=== PATIENT | female | born 1980 | race Caucasian/White ===

== ENCOUNTER 2016-07-27 18:24 | Emergency (ER) | payer OTHER ==
[2016-07-27 18:49] VITALS: BP 128/77
--- NOTE | 2016-07-27 19:15 | UC ---
Back Pain HPI - HPI Summary HPI Summary: months of upper back pain--sometimes arms feel numb and tingling-- - History of Current Complaint Chief Complaint: UCBackPain Stated Complaint: BACK PAIN Hx Obtained From: Patient Hx Last Menstrual Period: 5 months ago (stopped after a D&C)(pt may have had a ablation at that time) ?: No Onset/Duration: Lasting Weeks, Still Present - on/off Timing: Intermittent Severity Initially: Moderate Severity Currently: Moderate Back Pain: Is Discrete @ - mid upper thorasic spine Character: Aching, Throbbing, Stiffness Aggravating: Movement, Lifting, Bending, Walking Alleviating: Nothing Associated Signs And Symptoms: Positive: Tingling Related History: Similar Episode Dx As - seen pcp rx flexeril - Allergies/Home Medications Allergies/Adverse Reactions: Allergies Allergy/AdvReac Type Severity Reaction Status Date / Time No Known Allergies Allergy Verified 04/29/16 15:38 Home Medications: Home Medications Atorvastatin* [Lipitor*] 10 mg PO 1700 07/27/16 [History Confirmed 07/27/16] PMH/Surg Hx/FS Hx/Imm Hx Previously Healthy: No Endocrine History Of: Reports: Dyslipidemia Denies: Diabetes, Thyroid Disease Cardiovascular History Of: Reports: Cardiac Disorders - high cholesterol Denies: Hypertension Respiratory History Of: Denies: COPD, Asthma GI/ History Of: Denies: Ulcer - Surgical History Surgical History: Yes Surgery Procedure, Year, and Place: . gall bladder removal. right ovary removed - Family History Known Family History: Positive: Cardiac Disease, Hypertension, Diabetes - Social History Occupation: Disabled Lives: With Family Alcohol Use: Rare Substance Use Type: None Smoking Status (MU): Never Smoked Tobacco Household Exposure Type: Cigarettes Review of Systems Constitutional: Negative Skin: Negative Eyes: Negative ENT: Negative Respiratory: Negative Cardiovascular: Negative Gastrointestinal: Negative Genitourinary: Negative Motor: Negative Neurovascular: Negative Musculoskeletal: Arthralgia - mid thr Neurological: Negative Psychological: Negative All Other Systems Reviewed And Are Negative: Yes Physical Exam Triage Information Reviewed: Yes Appearance: No Pain Distress, Ill-Appearing - chronic apperars older than stated age, Obese Vital Signs: Initial Vital Signs Temp 97.5 F 07/27/16 18:45 Pulse 87 07/27/16 18:45 Resp 18 07/27/16 18:45 BP 128/77 07/27/16 18:45 Pulse Ox 99 07/27/16 18:45 Vital Signs Reviewed: Yes Eye Exam: Normal Eyes: Positive: Conjunctiva Clear ENT Exam: Normal ENT: Positive: Normal ENT inspection, Hearing grossly normal, TMs normal. Negative: Nasal congestion, Nasal drainage, Tonsillar swelling, Tonsillar exudate, Trismus, Muffled/hoarse voice Neck exam: Normal Neck: Positive: Supple, Nontender, No Lymphadenopathy Respiratory Exam: Normal Respiratory: Positive: Chest non-tender, Lungs clear, Normal breath sounds, No respiratory distress, No accessory muscle use Cardiovascular Exam: Normal Cardiovascular: Positive: RRR, No Murmur, Pulses Normal, Brisk Capillary Refill Musculoskeletal Exam: Normal Musculoskeletal: Positive: Strength Intact, ROM Intact, No Edema, Other: - pain t-spine has kyphosis Neurological Exam: Normal Neurological: Positive: Alert, Muscle Tone Normal Psychological Exam: Normal Psychological: Positive: Normal Response To Family Skin Exam: Normal Diagnostics - Radiology No standard instances Xray Interpretation: Positive (See Comments) - arthertic changes, disc height narrow Radiology Interpretation Completed By: ED Physician Back Pain Course/Dx - Course Course Of Treatment: exercises, muscle relaxers, antinflammatories, follw with PCP - Differential Dx/Diagnosis Differential Diagnosis/HQI/PQRI: Arthritis, Herniated Disc, Strain, Sprain Provider Diagnoses: Chronic throasic back pain Discharge - Discharge Plan Condition: Stable Disposition: HOME Prescriptions: Cyclobenzaprine TAB* [Flexeril TAB*] 10 mg PO TID PRN #15 tab PRN Reason: muscle pain Meloxicam(NF) [Mobic(NF)] 7.5 mg PO BID #30 tab Patient Education Materials: Osteoarthritis (ED), Chronic Back Pain (ED), Core Strengthening Exercises (GEN), Upper Back Exercises (GEN) Referrals: Alicja Eaton NP [Primary Care Provider] - 4 Days
--- NOTE | 2016-07-27 19:43 | RAD ---
Indication: 2 months worsening thoracic spine pain without known injury. Comparison: None. Technique: AP and lateral views thoracic spine. Report: Slight LEFT convex curve centered at the lower thoracic spine. Normal thoracic kyphosis. Negative for fracture. Diffuse mild vertebral endplate osteophytosis and disc space narrowing. Unremarkable paraspinal soft tissue contours. Gallbladder fossa level surgical clips. IMPRESSION: Multilevel mild degenerative spondylosis.
== END 2016-07-27 20:57 | disposition home or self-care (01) ==
LOC: UCEAST 18:24
DX: M54.6 Pain in thoracic spine (principal); Z77.22 Contact with and (suspected) exposure to environmental tobacco smoke (acute) (chronic)
CPT/HCPCS: 72070; 99212; G0463

== ENCOUNTER 2016-09-08 12:20 | Emergency (ER) | payer OTHER ==
[2016-09-08 15:37] VITALS: BP 117/70
--- NOTE | 2016-10-14 18:40 | UC ---
Jose Raul Munoz Janilya, scribed for Namita Lin DO on 09/08/16 at 1442 . General HPI - HPI Summary HPI Summary: A 36 y/o female came in to presenting w/ a gradual onset of constant sharp back pain starting a month ago. Severity rated 9/10 and it feels like a "stabbing" pain. Sometimes movement makes the back pain worse. Pt states the pain radiates from upper back down to arms and fingers bilaterally. Pt reports numbness and lack of sensation in her fingers starting 2 days ago. Worse on left side. Pt states sometimes the whole arm goes numb. Massaging makes the pain better. Nothing makes the pain worse. A couple months ago, pt noted rash on both arms; however, there are no rashes now. Pt denies fevers, chills, CP, SOB, neck or jaw pain, n/v/d, bleeding from rectum , LANDER[place], urinary symptoms, cough, sore throat. Pt also denies any recent injury. In addition, pt reports baseline lower abd pain. Pt thinks she has an ovarian cyst. PMHx ovarian cyst on right side. FHx CAD and HTN - grandmother, DM, aneurysm - father. SHx no tobacco use and occasional EtOH use. - History of Current Complaint Chief Complaint: UCGeneralIllness Stated Complaint: UPPER BACK PAIN Time Seen by Provider: 09/08/16 14:29 Hx Obtained From: Patient Onset/Duration: Gradual Onset, Lasting Weeks, Still Present Timing: Constant Onset Severity: Moderate Current Severity: Moderate Associated Signs & Symptoms: Positive: Abdominal Pain, Back Pain. Negative: Cough, Chest Pain, Diarrhea, Dysuria, Fever, Headache, SOB - Allergy/Home Medications Allergies/Adverse Reactions: Allergies Allergy/AdvReac Type Severity Reaction Status Date / Time No Known Allergies Allergy Verified 09/20/16 15:04 Home Medications: Home Medications Levothyroxine TAB* [Synthroid 100 MCG TAB*] 100 mcg PO DAILY 09/08/16 [History Confirmed 09/20/16] PMH/Surg Hx/FS Hx/Imm Hx Previously Healthy: Yes Endocrine History Of: Reports: Dyslipidemia Denies: Diabetes, Thyroid Disease Cardiovascular History Of: Reports: Cardiac Disorders - high cholesterol Denies: Hypertension Respiratory History Of: Denies: COPD, Asthma GI/ History Of: Denies: Ulcer - Surgical History Surgical History: Yes Surgery Procedure, Year, and Place: . gall bladder removal. right ovary removed - Family History Known Family History: Positive: Cardiac Disease, Hypertension, Diabetes - Social History Lives: With Family Alcohol Use: Rare Substance Use Type: None Smoking Status (MU): Never Smoked Tobacco Household Exposure Type: Cigarettes Review of Systems Constitutional: Negative Skin: Rash - a couple months ago, but not now Eyes: Negative ENT: Negative Respiratory: Negative Cardiovascular: Negative Gastrointestinal: Abdominal Pain Genitourinary: Negative Motor: Negative Neurovascular: Negative Musculoskeletal: Arthralgia - upper back pain down to arms and fingers bilaterally, Myalgia - upper back pain down to arms and fingers bilaterally Neurological: Numbness - fingers bilaterally Psychological: Negative All Other Systems Reviewed And Are Negative: Yes Physical Exam Triage Information Reviewed: Yes Appearance: Well-Appearing, No Pain Distress, Well-Nourished, Obese, Other: - Pt is very kyphotic. Pt is able to smile, laugh. Looks comfortable, not wincing. Vital Signs: Initial Vital Signs Temp 98.0 F 09/08/16 13:09 Pulse 78 09/08/16 13:09 Resp 20 09/08/16 13:09 BP 127/77 09/08/16 13:09 Pulse Ox 100 09/08/16 13:09 Vital Signs Reviewed: Yes Eyes: Positive: Conjunctiva Clear. Negative: Discharge ENT: Positive: Normal ENT inspection. Negative: Muffled/hoarse voice Neck exam: Normal Neck: Positive: Supple Respiratory: Positive: Lungs clear, Normal breath sounds, No respiratory distress, No accessory muscle use Cardiovascular: Positive: RRR, No Murmur Abdomen Description: Positive: Nontender, Soft, CVA Tenderness (L). Negative: CVA Tenderness (R), Distended, Guarding, McBurney's Point Tenderness Bowel Sounds: Positive: Present Musculoskeletal Exam: Normal Musculoskeletal: Positive: Strength Intact, ROM Intact, No Edema, Other: - Visual exam unremarkable except for kyphosis of thoracic spine. Pt has tenderness over the paraspinal muscles of the thoracic region. Spurling's test is negative bilaterally. Neurological: Positive: Alert, Muscle Tone Normal Psychological Exam: Normal Psychological: Positive: Age Appropriate Behavior Skin Exam: Normal Skin: Positive: Other - warm, dry, and normal color Diagnostics - EKG Cardiac Rate: NL - time: 1533 rate: [address] Segment: Normal Course/Dx - Differential Dx - Multi-Symptom Differential Diagnoses: Other - thoraic outlet syndrom, cervical radiculopathy Provider Diagnoses: ovarian, thoracic outlet syndrom Discharge - Discharge Plan Condition: Stable Disposition: HOME Patient Education Materials: Ovarian Cyst (ED), Thoracic Outlet Syndrome (ED) Referrals: Alicja Eaton NP [Primary Care Provider] - (follow up by the end of next week) Additional Instructions: With regard to the left lower quadrant pain that you believe is in the result of ovarian cyst: you will need an ultrasound of the pelvis. We cannot order that here in evenings or on weekends. So it is very important that you follow up with your primary care provider to order this ultrasound. If you develop severe pain in the lower left quadrant before you are able to get in with your primary doctor, please go immediately to the ER. ANTI-INFLAMMATORY MEDICATION: You have received a prescription for an antiinflammatory agent. This is an excellent, safe drug for pain control. In addition, it has potent antiinflammatory effects which are beneficial, especially in the treatment of injuries, arthritis, or tendonitis. It's best to take this medicine with food. Persons with ulcer disease or allergy to aspirin should notify their physician of this before taking this drug. Take the medication exactly as prescribed. Don't take additional doses unless instructed to do so by your doctor. If you develop wheezing, shortness of breath, hives, faintness, stomach pain, vomiting, or dark black stools, return for re-evaluation at once. ORAL NARCOTIC MEDICATION: You have been given a prescription for pain control. This medication is a narcotic. It's best taken with food, as nausea can result if taken on an empty stomach. Don't operate machinery or drive within six hours of taking this medication. Do not combine this medicine with alcohol, or with any medication which can cause sedation (such as cold tablets or sleeping pills) unless you get permission from the physician. Narcotics tend to cause constipation. If possible, drink plenty of fluids and eat a diet high in fiber and fruits. PHYSICAL THERAPY REFERRAL: You have been prescribed physical therapy. Treatments may include stretching, exercise, application of heat or cold, and other modalities. After an injury, PT can reduce swelling and pain. In recovery, PT is used to restore mobility and strength. Your specific treatment goals are: Reduction of Swelling (EGS, US, ice as needed) __x___ Pain Reduction (EGS, US, ice as needed) TENS Pack Fitting and Instruction Wound Hydrotherapy __x___ Preservation of Mobility Evangelical of Mobility Strength Evangelical __x___ Work or Sports Hardening This instruction sheet also serves as your PHYSICAL THERAPY REFERRAL! Please take it with you to the therapist, so he/she will be aware of your diagnosis and treatment plan. You may see the physical therapist of your choice for these treatments, but may wish to check with your insurance to be sure the provider you select is covered. It's important to see the doctor to whom you have been referred for follow up. YOU WOULD LIKELY BENEFIT FROM OSTEOPATHIC TREATMENT. WE RECOMMEND THAT YOU FIND AN OSTEOPATHIC PHYSICIAN IN YOUR AREA WHO FOCUSES EXCLUSIVELY ON OSTEOPATHIC MANIPULATIVE MEDICINE WITH EXPERTISE IN MYOFACIAL, LYMPHATIC, VISCERAL AND INTEROSSEOUS WORK The documentation as recorded by the Jose Raul eckert Janilya accurately reflects the service I personally performed and the decisions made by me, Namita Lin DO.
== END 2016-09-08 16:05 | disposition home or self-care (01) ==
LOC: UCEAST 12:20
DX: G54.0 Brachial plexus disorders (principal); N83.209 Unspecified ovarian cyst, unspecified side; R10.32 Left lower quadrant pain; M79.602 Pain in left arm; Z32.02 Encounter for pregnancy test, result negative; Z90.49 Acquired absence of other specified parts of digestive tract; E66.9 Obesity, unspecified; Z77.22 Contact with and (suspected) exposure to environmental tobacco smoke (acute) (chronic)
CPT/HCPCS: 81002; 81025; 93005; 99212; G0463

== ENCOUNTER 2016-09-20 14:03 | Emergency (ER) | payer OTHER ==
[2016-09-20 15:09] VITALS: BP 127/79
--- NOTE | 2016-09-20 16:03 | UC ---
Back Pain HPI - HPI Summary HPI Summary: pain in the center of her back between her shoulders, sometimes her hands feel numb the only thing that helps is the hydrocodone---states she has seen her pcp and she has ordered some x-rays and ekg and labs that she had done before she came here today - History of Current Complaint Chief Complaint: UCBackPain Stated Complaint: UPPER BACK PAIN Time Seen by Provider: 09/20/16 15:49 Hx Obtained From: Patient Hx Last Menstrual Period: s/p uterine ablation ?: No Onset/Duration: Gradual Onset, Lasting Weeks, Still Present, Worse Since - past 3-4 days Timing: Constant Severity Initially: Moderate Severity Currently: Moderate Pain Intensity: 8 Pain Scale Used: 0-10 Numeric Back Pain: Is Discrete @ - as described Character: Aching, Throbbing, Stiffness Aggravating: Movement, Lifting, Bending, Walking Alleviating: Nothing - except hydrocodone Associated Signs And Symptoms: Positive: Negative Related History: Previous Back Injury - Allergies/Home Medications Allergies/Adverse Reactions: Allergies Allergy/AdvReac Type Severity Reaction Status Date / Time No Known Allergies Allergy Verified 09/20/16 15:04 Home Medications: Home Medications Ibuprofen TAB* [Advil TAB*] 800 mg PO Q6H PRN 09/20/16 [History Confirmed ] PMH/Surg Hx/FS Hx/Imm Hx Previously Healthy: No Endocrine History Of: Reports: Thyroid Disease - Hypothyroidism, Dyslipidemia Denies: Diabetes Cardiovascular History Of: Reports: Cardiac Disorders - Dyslipidemia Denies: Hypertension Respiratory History Of: Denies: COPD, Asthma GI/ History Of: Denies: Ulcer - Surgical History Surgical History: Yes Surgery Procedure, Year, and Place: Uterine Ablation, 2015, [place]; Right Oopherectomy, 2014, [place]; Cholecystectomy, ~2011, [place]; , 2004, [place] - Family History Known Family History: Positive: Cardiac Disease, Hypertension, Diabetes - Social History Occupation: Unemployed Lives: With Family Alcohol Use: Rare Substance Use Type: None Smoking Status (MU): Former Smoker When Did the Patient Quit Smoking/Using Tobacco: "a year ago" 09/21/15 Household Exposure Type: Cigarettes Review of Systems Constitutional: Negative Skin: Negative Eyes: Negative ENT: Negative Respiratory: Negative Cardiovascular: Negative Gastrointestinal: Negative Genitourinary: Negative Motor: Negative Neurovascular: Negative Musculoskeletal: Arthralgia - between shoulder blades Neurological: Negative Psychological: Negative All Other Systems Reviewed And Are Negative: Yes Physical Exam Triage Information Reviewed: Yes Appearance: Well-Appearing, No Pain Distress, Obese Vital Signs: Initial Vital Signs Temp 98.3 F 09/20/16 15:01 Pulse 72 09/20/16 15:01 Resp 16 09/20/16 15:01 BP 127/79 09/20/16 15:01 Pulse Ox 100 09/20/16 15:01 Vital Signs Reviewed: Yes Eye Exam: Normal Eyes: Positive: Conjunctiva Clear ENT Exam: Normal ENT: Positive: Normal ENT inspection, Hearing grossly normal. Negative: Nasal congestion, Nasal drainage, Trismus, Muffled/hoarse voice Neck exam: Normal Neck: Positive: Supple, Nontender Respiratory Exam: Normal Respiratory: Positive: Chest non-tender, Lungs clear, Normal breath sounds, No respiratory distress, No accessory muscle use Cardiovascular Exam: Normal Cardiovascular: Positive: RRR, No Murmur, Pulses Normal, Brisk Capillary Refill Musculoskeletal Exam: Normal Musculoskeletal: Positive: Strength Intact, ROM Intact, No Edema Neurological Exam: Normal Neurological: Positive: Alert, Muscle Tone Normal Psychological Exam: Normal Skin Exam: Normal Back Pain Course/Dx - Course Course Of Treatment: zanaflex (pt refuses flexeril), naproxen, continue to follow with pcp heat/ice for comfort - Differential Dx/Diagnosis Differential Diagnosis/HQI/PQRI: Arthritis, Strain, Sprain Provider Diagnoses: acute on chronic upper back pain Discharge - Discharge Plan Condition: Stable Disposition: HOME Prescriptions: Tizanidine HCl [Zanaflex] 2 - 4 mg PO TID PRN #30 cap PRN Reason: back spasms Patient Education Materials: Muscle Spasm (ED), Chronic Back Pain (ED), Neck Exercises (GEN), Upper Back Exercises (GEN) Referrals: Tania Weiner MD [Primary Care Provider] - 09/25/16 (as planned)
== END 2016-09-20 16:14 | disposition home or self-care (01) ==
LOC: UCCORT 14:03
DX: M54.6 Pain in thoracic spine (principal); Z87.891 Personal history of nicotine dependence
CPT/HCPCS: 99212; G0463

== ENCOUNTER 2016-09-21 22:05 | Emergency (ER) | payer OTHER ==
[2016-09-21] MEDS ORDERED: NS 0.9% 1000 ML* 1,000 ML IV ONE (22:26)
[2016-09-21] MEDS ORDERED: Ondansetron INJ* 2 MG/ML VIAL IV ONE (22:26)
--- NOTE | 2016-09-21 22:33 | ED ---
Donna Munoz Erika, scribed for Siva Rubio MD on 09/21/16 at 2231 . GI/ HPI - HPI Summary HPI Summary: Patient is a 36-year-old female presenting to the ED with a CC of vomiting today. Patient reports she was seen in an ED yesterday for back pain, and was prescribed baclofen. Pt had no issues with the baclofen last night. She then took more, and this morning woke up at 06:00 and with nausea and diffuse abdominal pain. Pt reports she has vomited about 15-20x since then. Most recent emesis was 30 minutes ago. Patient does also report diarrhea yesterday. She states that today, she took Maalox around 13:00, which did not alleviate the symptoms. She states she has had decreased PO intake today and has not been able to tolerate PO. She reports that she has had recent household exposure to sickness. - History of Current Complaint Chief Complaint: EDNauseaVomitDiarrh Time Seen by Provider: 09/21/16 22:23 Stated Complaint: VOMITING Hx Obtained From: Patient Onset/Duration: Started Hours Ago, Atraumatic, Still Present Timing: Constant Severity: Moderate Pain Intensity: 9 Location of Pain: Diffuse Pain Characteristics: Cramping Associated Signs and Symptoms: Positive: Nausea, Vomiting, Diarrhea - yesterday Aggravating Factor(s): Food Alleviating Factor(s): Nothing - Allergy/Home Medications Allergies/Adverse Reactions: Allergies Allergy/AdvReac Type Severity Reaction Status Date / Time No Known Allergies Allergy Verified 09/20/16 15:04 PMH/Surg Hx/FS Hx/Imm Hx Endocrine/Hematology History: Reports: Hx Thyroid Disease - Hypothyroidism Denies: Hx Diabetes Cardiovascular History: Denies: Hx Hypertension Respiratory History: Denies: Hx Asthma, Hx Chronic Obstructive Pulmonary Disease (COPD) GI History: Denies: Hx Ulcer History: Reports: Other Problems/Disorders - lft and right ovarian cyst - Surgical History Surgery Procedure, Year, and Place: Uterine Ablation, 2015, [place]; Right Oopherectomy, 2014, [place]; Cholecystectomy, ~2011, [place]; , 2004, [place] Infectious Disease History: No Infectious Disease History: Denies: Hx Clostridium Difficile, Hx Hepatitis, Hx Human Immunodeficiency Virus (HIV), Traveled Outside the [place] in Last 30 Days - Family History Known Family History: Positive: Cardiac Disease, Hypertension, Diabetes - Social History Lives: With Family Alcohol Use: Rare Substance Use Type: Reports: None Hx Tobacco Use: Yes Smoking Status (MU): Former Smoker Review of Systems Positive: Abdominal Pain, Vomiting, Diarrhea - yesterday, Nausea Positive: Myalgia - back pain All Other Systems Reviewed And Are Negative: Yes Physical Exam Triage Information Reviewed: Yes Vital Signs On Initial Exam: Initial Vitals Temp Pulse Resp BP Pulse Ox 96.5 F 75 18 122/89 97 09/21/16 22:06 09/21/16 22:06 09/21/16 22:06 09/21/16 22:06 09/21/16 22:06 Vital Signs Reviewed: Yes Appearance: Positive: No Pain Distress, Obese Skin: Positive: Warm Head/Face: Positive: Normal Head/Face Inspection Eyes: Positive: [place]CED[place] ENT: Positive: Hearing grossly normal Neck: Positive: Supple Respiratory/Lung Sounds: Positive: Breath Sounds Present Cardiovascular: Positive: RRR Abdomen Description: Positive: Nontender, No Organomegaly, Soft Bowel Sounds: Positive: Present Musculoskeletal: Positive: Strength/ROM Intact Neurological: Positive: Sensory/Motor Intact, Alert, Oriented to Person Place, Time Psychiatric: Positive: Affect/Mood Appropriate Diagnostics - Vital Signs Vital Signs Temp Pulse Resp BP Pulse Ox 09/21/16 22:06 96.5 F 75 18 122/89 97 - Laboratory Result Diagrams: 09/21/16 22:50 09/21/16 22:50 Lab Statement: Any lab studies that have been ordered have been reviewed, and results considered in the medical decision making process. Re-Evaluation - Re-Evaluation First Eval Change: Improved - tolerating po GIGU Course/Dx - Course Assessment/Plan: A 36 y/o F presents to the ED with a CC of nausea and vomiting. In the ED course, pt is given IV fluids and zofran. Blood work is ordered. - Diagnoses Provider Diagnoses: Gastroenteritis Discharge - Discharge Plan Condition: Stable Disposition: HOME Patient Education Materials: Gastroenteritis (ED), Acute Nausea and Vomiting ( ED) Referrals: Tania Weiner MD [Primary Care Provider] - Additional Instructions: Please keep a bland diet and follow up with your PCP. The documentation as recorded by the Donna eckert Erika accurately reflects the service I personally performed and the decisions made by , Siva Rubio MD.
[2016-09-21 23:00] LABS: Hematocrit 41 % (35-47); Hemoglobin 13.4 g/dl (12.0-16.0); Mean Corpuscular HGB Conc 33 g/dl (31-36); Mean Corpuscular Hemoglobin 29 pg (27-31); Mean Corpuscular Volume 88 fL (80-97); Mean Platelet Volume 9 um3 (7.4-10.4); Red Cell Distribution Width 13 % (10.5-15); White Blood Count 8.1 10^3/ul (3.5-10.8)
[2016-09-21 23:13] LABS: Albumin 3.9 g/dL (3.2-5.2); BUN/Creatinine Ratio 11.6 (8-20); Calcium 9.5 mg/dL (8.6-10.3); EGFR Non-African American 74.7 (>60); Globulin 3.2 g/dL (2-4); Potassium 4.1 mmol/L (3.5-5.0); Total Bilirubin 0.5 mg/dL (0.2-1.0); Total Protein 7.1 g/dL (6.4-8.9)
[2016-09-21] MEDS ORDERED: Ondansetron ODT TAB* 4 MG PO ONE (23:54)
[2016-09-22 00:56] VITALS: BP 111/66
--- NOTE | 2016-10-08 23:44 | ED ---
Lia Munoz Salem, libzethibed for Siva Rubio MD on 09/21/16 at 2355 . Progress - Progress Note Progress Note: Pt advised to keep a bland diet. Course/Dx - Diagnoses Provider Diagnoses: Gastroenteritis Discharge - Discharge Plan Condition: Stable Disposition: HOME Patient Education Materials: Gastroenteritis (ED), Acute Nausea and Vomiting ( ED) Referrals: Tania Weiner MD [Primary Care Provider] - Additional Instructions: Please keep a bland diet and follow up with your PCP. The documentation as recorded by the Lia eckert Salem accurately reflects the service I personally performed and the decisions made by Joanne subramanian David, MD.
== END 2016-09-22 00:35 | disposition home or self-care (01) ==
LOC: ED 22:05
DX: K52.9 Noninfective gastroenteritis and colitis, unspecified (principal); R11.2 Nausea with vomiting, unspecified; R19.7 Diarrhea, unspecified; Z87.891 Personal history of nicotine dependence; M54.9 Dorsalgia, unspecified
CPT/HCPCS: 36415; 80053; 85025; 96374; 99283; J2405

== ENCOUNTER 2016-11-05 16:08 | Emergency (ER) | payer OTHER ==
[2016-11-05 17:01] VITALS: BP 123/79
--- NOTE | 2016-11-05 18:10 | UC ---
Abdominal Pain Female HPI - HPI Summary HPI Summary: L low abd/pelvic pain starting 2 days ago. Has had pain like this many times before, multiple ovarian cysts with multiple procedures by Dr. Vickers. Has had R oophorectomy and uteran ablation, strongly desires L oophorectomy as well. Denies vomiting, diarrhea, bloody stools, constipation, fever, or GI upset. Had brief vaginal spotting that has resolved. - History of Current Complaint Chief Complaint: UCAbdominalPain Stated Complaint: PAIN ON LEFT SIDE Time Seen by Provider: 11/05/16 17:34 Hx Obtained From: Patient Hx Last Menstrual Period: none ?: No Onset/Duration: Gradual Onset, Lasting Days Timing: Constant Severity Initially: Moderate Severity Currently: Moderate Location: Discrete At: LLQ Radiates: Yes Radiates to: LLQ Character: Sharp Aggravating Factor(s): Nothing Alleviating Factor(s): Nothing Associated Signs and Symptoms: Positive: Vaginal Bleeding. Negative: Fever, Back Pain, Constipation, Blood in Stool, Urinary Symptoms, Vomiting, Diarrhea Allergies/Adverse Reactions: Allergies Allergy/AdvReac Type Severity Reaction Status Date / Time No Known Allergies Allergy Verified 11/05/16 16:54 PMH/Surg Hx/FS Hx/Imm Hx Endocrine History Of: Reports: Thyroid Disease - Hypothyroidism, Dyslipidemia Denies: Diabetes Cardiovascular History Of: Reports: Cardiac Disorders - Dyslipidemia Denies: Hypertension Respiratory History Of: Denies: COPD, Asthma GI/ History Of: Denies: Ulcer - Surgical History Surgical History: Yes Surgery Procedure, Year, and Place: Uterine Ablation, 2015, [place]; Right Oopherectomy, 2014, [place]; Cholecystectomy, ~2011, [place]; , 2004, [place] - Family History Known Family History: Positive: Cardiac Disease, Hypertension, Diabetes - Social History Occupation: Unemployed Lives: With Family Alcohol Use: Rare Substance Use Type: None Smoking Status (MU): Former Smoker When Did the Patient Quit Smoking/Using Tobacco: "a year ago" 09/21/15 Household Exposure Type: Cigarettes Review of Systems Constitutional: Negative Skin: Negative Eyes: Negative ENT: Negative Respiratory: Negative Cardiovascular: Negative Gastrointestinal: Abdominal Pain Genitourinary: Negative Motor: Negative Neurovascular: Negative Musculoskeletal: Negative Neurological: Negative Psychological: Negative All Other Systems Reviewed And Are Negative: Yes Physical Exam Triage Information Reviewed: Yes Appearance: Well-Appearing, No Pain Distress Vital Signs: Initial Vital Signs Temp 97.9 F 11/05/16 16:55 Pulse 69 11/05/16 16:55 Resp 16 11/05/16 16:55 BP 123/79 11/05/16 16:55 Pulse Ox 100 11/05/16 16:55 Vital Signs Reviewed: Yes Eye Exam: Normal Eyes: Positive: Conjunctiva Clear ENT Exam: Normal ENT: Positive: Normal ENT inspection, Hearing grossly normal, Pharynx normal, TMs normal Neck exam: Normal Neck: Positive: Supple, Nontender, No Lymphadenopathy Respiratory Exam: Normal Respiratory: Positive: Chest non-tender, Lungs clear, Normal breath sounds, No respiratory distress, No accessory muscle use Cardiovascular Exam: Normal Cardiovascular: Positive: RRR, No Murmur Abdominal Exam: Other - Exam limited by obesity. Mild tenderness LLQ Abdomen Description: Positive: No Organomegaly, Soft. Negative: CVA Tenderness (L), McBurney's Point Tenderness, Peritoneal Signs, Pulsatile Mass Musculoskeletal Exam: Normal Neurological Exam: Normal Neurological: Positive: Alert Psychological Exam: Normal Skin Exam: Normal Abd Pain Female Course/Dx - Differential Dx/Diagnosis Provider Diagnoses: L pelvic pain Discharge - Discharge Plan Condition: Stable Disposition: HOME Prescriptions: Acetaminop/Codeine 30 MG TAB* [Tylenol/Codeine 30 MG TAB*] 1 tab PO Q6H PRN #8 tab MDD 4 PRN Reason: Pain Etodolac 200 mg PO TID #20 cap Patient Education Materials: Pelvic Pain in Women (ED) Referrals: Tania Weiner MD [Primary Care Provider] - Siva Vickers MD [Medical Doctor] - 1 Week Additional Instructions: I agree that your pain sounds a lot like ovarian cysts, but we are unable to do any testing to confirm this. Your vital signs and exam do not suggest any dangerous cause today, so I am recommending that you see Dr. Vickers in his clinic in about a week. If you develop fever, worsening pain, bloody stool, prolonged vomiting, or any other severe symptoms, please go to the emergency department.
== END 2016-11-05 18:14 | disposition home or self-care (01) ==
LOC: UCEAST 16:08
DX: R10.2 Pelvic and perineal pain (principal); E03.9 Hypothyroidism, unspecified; E78.5 Hyperlipidemia, unspecified
CPT/HCPCS: 99212; G0463

== ENCOUNTER 2016-12-21 10:36 | Emergency (ER) | payer OTHER ==
--- NOTE | 2016-12-21 10:58 | ED ---
Lower Extremity - HPI Summary HPI Summary: 36F presents with right ankle pain for 2 days. She twisted the ankle two days ago. She states pain is greatest on lateral aspect of the ankle. She denies any previous injury to the ankle. She denies any numbness or tingling. She has been taking Tyenlol for her pain and ice it. She noticed some bruising today. She has been walking on her toes as she states it causing her pain to walk on her heals. She state the pain radiates into her foot. - History of Current Complaint Chief Complaint: EDExtremityLower Stated Complaint: RIGHT ANKLE PAIN Time Seen by Provider: 12/21/16 10:50 Hx Last Menstrual Period: none Pain Intensity: 6 - Allergies/Home Medications Allergies/Adverse Reactions: Allergies Allergy/AdvReac Type Severity Reaction Status Date / Time No Known Allergies Allergy Verified 11/05/16 16:54 PMH/Surg Hx/FS Hx/Imm Hx Endocrine/Hematology History: Reports: Hx Thyroid Disease - Hypothyroidism Denies: Hx Diabetes Cardiovascular History: Denies: Hx Hypertension Respiratory History: Denies: Hx Asthma, Hx Chronic Obstructive Pulmonary Disease (COPD) GI History: Denies: Hx Ulcer History: Reports: Other Problems/Disorders - lft and right ovarian cyst - Surgical History Surgery Procedure, Year, and Place: Uterine Ablation, 2015, [place]; Right Oopherectomy, 2014, [place]; Cholecystectomy, ~2011, [place]; , 2004, [place] - Immunization History Date of Influenza Vaccine: none Infectious Disease History: No Infectious Disease History: Denies: Hx Clostridium Difficile, Hx Hepatitis, Hx Human Immunodeficiency Virus (HIV), Traveled Outside the in Last 30 Days - Family History Known Family History: Positive: Cardiac Disease, Hypertension, Diabetes - Social History Alcohol Use: Rare Substance Use Type: Reports: None Hx Tobacco Use: Yes Smoking Status (MU): Former Smoker Review of Systems Negative: Fever Negative: Chest Pain Negative: Shortness Of Breath Positive: Myalgia - right ankle pain, Edema - right ankle All Other Systems Reviewed And Are Negative: Yes Physical Exam Triage Information Reviewed: Yes Vital Signs On Initial Exam: Initial Vitals Temp Pulse Resp BP Pulse Ox 97.3 F 72 16 123/73 100 12/21/16 10:39 12/21/16 10:39 12/21/16 10:39 12/21/16 10:39 12/21/16 10:39 Vital Signs Reviewed: Yes Appearance: Positive: Well-Appearing Skin: Positive: Warm, Dry Head/Face: Positive: Normal Head/Face Inspection Eyes: Positive: Normal, Conjunctiva Clear Respiratory/Lung Sounds: Positive: Clear to Auscultation, Breath Sounds Present Cardiovascular: Positive: Normal, RRR Musculoskeletal: Positive: Strength/ROM Intact - toes, Limited @ - ankle to pain , Other - good pulses, capillary refill < 2 secs, tenderness and edema to lateral malleolus with some ecchymosis present Diagnostics - Vital Signs Vital Signs Temp Pulse Resp BP Pulse Ox 12/21/16 10:41 98.3 F 65 20 123/73 100 12/21/16 10:39 97.3 F 72 16 123/73 100 - Laboratory Lab Statement: Any lab studies that have been ordered have been reviewed, and results considered in the medical decision making process. - Radiology ankle Xray Interpretation: Positive (See Comments) - IMPRESSION: SOFT TISSUE SWELLING AND SMALL LINEAR AVULSION FRACTURE FRAGMENT ARISING FROM THE TIP OF THE DISTAL FIBULA. Radiology Interpretation Completed By: Radiologist foot Xray Interpretation: Positive (See Comments) - IMPRESSION: Fragmented medial sesamoid which may represent chronic changes. No definite fracture is noted. Radiology Interpretation Completed By: Radiologist Lower Extremity Course/Dx - Course Course Of Treatment: 36F presents with right ankle pain for 2 days. twisted ankle 2 days. has been able to ambulate with pain. noticed edema and brusing to lateral aspect of ankle where pain is. on exam good pulses, tender of lateral malleolus. xray foot shows chronic sesamoid which does not have any pain there and ankle shows avulsion fracture of fibula. will treat as sprain. told to follow RICE. patient understands and agrees with plan - Diagnoses Differential Diagnosis/HQI/PQRI: Positive: Fracture (Closed), Sprain, Strain Provider Diagnoses: Right ankle pain, Avulsion fracture of distal fibula Discharge - Discharge Plan Condition: Good Disposition: HOME Patient Education Materials: Ankle Sprain (ED) Referrals: Tania Weiner MD [Primary Care Provider] - Additional Instructions: Stay off ankle as much as possible Ice, elevate, keep in DORI Ibuprofen every 6 hours for pain Follow up with primary in a week Return to ED if develop any new or worsening symptoms
--- NOTE | 2016-12-21 11:27 | RAD ---
INDICATION: Right ankle injury. TECHNIQUE: 3 views of the right ankle were obtained. FINDINGS: There is soft tissue swelling which is most prominent along the anterolateral aspect of the ankle. There is a small linear fracture fragment arising from the distal tip of the fibula which is nondisplaced. No other fractures are seen. Joint spaces appear maintained. IMPRESSION: SOFT TISSUE SWELLING AND SMALL LINEAR AVULSION FRACTURE FRAGMENT ARISING FROM THE TIP OF THE DISTAL FIBULA.
--- NOTE | 2016-12-21 11:28 | RAD ---
Indication: Right foot pain 3 views of the right foot are reviewed. No definite fracture is identified although the medial sesamoid is fragmented. Clinical correlation is suggested. This may represent prior injury. IMPRESSION: Fragmented medial sesamoid which may represent chronic changes. No definite fracture is noted.
[2016-12-21 12:38] VITALS: BP 121/79
== END 2016-12-21 12:00 | disposition home or self-care (01) ==
LOC: ED 10:36
DX: S82.839A Other fracture of upper and lower end of unspecified fibula, initial encounter for closed fracture (principal); M25.571 Pain in right ankle and joints of right foot; R60.0 Localized edema; Z87.891 Personal history of nicotine dependence; X58.XXXA Exposure to other specified factors, initial encounter; Y93.9 Activity, unspecified; Y92.9 Unspecified place or not applicable
CPT/HCPCS: 99282

== ENCOUNTER 2017-02-26 13:15 | Emergency (ER) | payer OTHER ==
--- NOTE | 2017-02-26 15:10 | UC ---
Complaint Female HPI - HPI Summary HPI Summary: 36 y/o female presents to the urgent care c/o LLQ pelvic pain for the past week. Pt states she has HX of ovarian cysts. In 08/2015, she had her RT oopherectomy due to an enlarged ovarian cyst. [facility] Vickers told her she had another ovarian cyst in the LF ovary, but he didn't remove it to avoid hysterectomy. For the past week her pain has increase on the LF side. Pain today is 6/10 w/o any radiation or urinary symptoms. Pt states mild vaginal discharge. LMP; 08/2015. She had her PAP on 02/05/2017 for which she doesn't know the report. Pt has not taking anything to alleviate symptoms. Pt denies fever, SOB, chest pain, urinary symptoms, N/V/D. Pt has not other complains. - History Of Current Complaint Chief Complaint: UCAbdominalPain Stated Complaint: PELVIC PAIN Time Seen by Provider: 02/26/17 14:17 Hx Obtained From: Patient Hx Last Menstrual Period: 08/2015 ?: No Onset/Duration: Gradual Onset, Lasting Days, Still Present Timing: Intermittent, Lasting Days Severity Initially: Mild Severity Currently: Moderate Pain Intensity: 6 Pain Scale Used: 0-10 Numeric Character: Sharp Aggravating Factor(s): Movement Alleviating Factor(s): Position Associated Signs And Symptoms: Positive: Vaginal Discharge - mild. Negative: Fever, Back Pain, Vaginal Bleeding/Discharge, Nausea, Genital Swelling, Genital Blisters Related Hx: - 1 - Risk Factors Ectopic Risk Factor: Negative Ovarian Torsion Risk Factor: Ovarian Cysts/Tumors - LF ovarian cyst, RT ovary removed in 08/2016 - Allergies/Home Medications Allergies/Adverse Reactions: Allergies Allergy/AdvReac Type Severity Reaction Status Date / Time No Known Allergies Allergy Verified 02/26/17 13:29 PMH/Surg Hx/FS Hx/Imm Hx Previously Healthy: Yes Other GI/ History: Ovarian cysts - Surgical History Surgical History: Yes Surgery Procedure, Year, and Place: Uterine Ablation, 2015, [place]; Right Oopherectomy, 2014, [place]; Cholecystectomy, ~2011, [place]; , 2004, [place] - Family History Known Family History: Positive: Cardiac Disease, Hypertension, Diabetes - Social History Occupation: Employed Full-time Lives: With Family Alcohol Use: Rare Substance Use Type: None Smoking Status (MU): Former Smoker When Did the Patient Quit Smoking/Using Tobacco: "a year ago" 09/21/15 Household Exposure Type: Cigarettes Review of Systems Constitutional: Negative Skin: Negative Eyes: Negative ENT: Negative Respiratory: Negative Cardiovascular: Negative Gastrointestinal: Abdominal Pain - LLQ pelvic pain Genitourinary: Other - mild vaginal discharge Motor: Negative Neurovascular: Negative Musculoskeletal: Negative Neurological: Negative Psychological: Negative All Other Systems Reviewed And Are Negative: Yes Physical Exam Triage Information Reviewed: Yes Appearance: Well-Appearing, No Pain Distress, Well-Nourished, Obese Vital Signs: Initial Vital Signs Temp 97.7 F 02/26/17 13:26 Pulse 75 02/26/17 13:26 Resp 20 02/26/17 13:26 BP 142/89 02/26/17 13:26 Pulse Ox 100 02/26/17 13:26 Vital Signs Reviewed: Yes Eye Exam: Normal Eyes: Positive: Conjunctiva Clear - PERRLA, EOMI, fundi grossly normal ENT Exam: Normal ENT: Positive: Normal ENT inspection, Hearing grossly normal, Pharynx normal, TMs normal Dental Exam: Normal Neck exam: Normal Neck: Positive: Supple, Nontender, No Lymphadenopathy Respiratory Exam: Normal Respiratory: Positive: Chest non-tender, Lungs clear, Normal breath sounds Cardiovascular Exam: Normal Cardiovascular: Positive: RRR, No Murmur, Pulses Normal, Brisk Capillary Refill Abdominal Exam: Normal Abdomen Description: Positive: Nontender, No Organomegaly, Soft, Other: - LLQ pelvic tenderness on deep palpation. Pelvic: External genitalia within normal limits. There is no lesions or masses noted. Speculum exam: The vaginal neff are within normal limits w/ greyish vaginal discharge w/ a fishy odor, no lesions or rashes. The cervix is closed with no lesions or masses. There is no CMT's, but positive LF adnexal tenderness at palpation. Rectal: No lesions, no hemorrhoids,. Negative: CVA Tenderness (R), CVA Tenderness (L) Bowel Sounds: Positive: Present Musculoskeletal Exam: Normal Neurological Exam: Normal Psychological Exam: Normal Skin Exam: Normal Complaint Female Dx - Course Course Of Treatment: 36 y/o female presents to the urgent care c/o LLQ pelvic pain for the past week. Pt states she has HX of ovarian cysts. In 2015, she had her RT oopherectomy due to an enlarged ovarian cyst. Her [facility] Vickers told her she had another ovarian cyst in the LF ovary, but he didn't remove it to avoid hysterectomy. For the past week her pain has increase on the LF side. Pain today is 6/10 w/o any radiation or urinary symptoms. Pt states mild vaginal discharge. LMP; 08/2015. She had her PAP on 02/05/2017 for which she doesn't know the report. Pt has not taking anything to alleviate symptoms. Pt denies fever, SOB, chest pain, urinary symptoms, N/V/D.x obtained. PE abnormal findings: LLQ pelvic tenderness on deep palpation. Pelvic: External genitalia within normal limits. There is no lesions or masses noted. Speculum exam: The vaginal neff are within normal limits w/ greyish vaginal discharge w/ a fishy odor, no lesions or rashes. The cervix is closed with no lesions or masses. There is no CMT's, but positive LF adnexal tenderness at palpation. Rectal: No lesions, no hemorrhoids. Transvaginal ultrasound ordered to r/o ovarian torsion or ovarian cyst. Result: Possible adenomyosis. I looked at the Pt's PAP results done in 02/05/[address] Vickers. PAP is negative. It also reports Bacterial Vaginosis. However Pt has not been contacte by [facility] and Todays vaginal discharge is consistent W/ BV. Pt Rx Metronidazole intravaginal cream. Also Rx Ibuprofen PO to alleviate pelvic pain. Pt advised to f/u with DR Vickers for further evaluation and treatment if symptoms persists. Pt understood and agreed. - Differential Dx/Diagnosis Differential Diagnosis/HQI/PQRI: Bartholin Cyst, Cervicitis, Ectopic, Endometriosis, Ovarian Cyst, Ovarian Torsion, , Urinary Tract Infection Provider Diagnoses: 1- Pelvic pain. 2-Adenomyosis. 3-Bacterial vaginosis. 4- Elevated Blood pressure w/o Hx of HTN Discharge - Discharge Plan Condition: Stable Disposition: HOME Prescriptions: Ibuprofen TAB* [Motrin TAB* 800 MG] 800 mg PO Q6H #20 tab metroNIDAZOLE VAGINAL 0.75%* 1 applic VAGINAL BEDTIME #1 elizabeth Patient Education Materials: Ovarian Cyst (ED), Pelvic Pain in Women (ED) Referrals: Siva Vickers MD [Medical Doctor] - 3 Days Tania Weiner MD [Primary Care Provider] - If Needed Additional Instructions: 1-Please apply the medications as directed for Bacterial Vaginosis . Take ibuprofen after meals to alleviate symptoms of pain. Please f/u with your [facility] Vickers if symptoms persists for further evaluation and treatment and r/o endometrium polyp. 2- Your BP today is elevated please decrease salt in your diet and monitor your BP if continues to be elevated please f/u with your PCP for further management.
--- NOTE | 2017-02-26 16:03 | RAD ---
INDICATION: Left lower quadrant pain. Relevant surgical history includes a right oophorectomy. COMPARISON: Similar ultrasound examination dated April 29, 2016 TECHNIQUE: Real-time transabdominal and transvaginal ultrasound examination of the female pelvis including grayscale and Doppler color flow imaging. FINDINGS: Uterus: The uterus measures 6.6 x 2.8 x 4.0 cm. Overall the uterus is heterogeneous in echogenicity similar to the previous ultrasound. The endometrial stripe measures 3 mm in thickness. There is anechoic and avascular fluid in the endometrial canal measuring up to 3 mm in thickness. There is an avascular echogenic focus extending from the endometrial wall measuring less than 2 mm. Ovaries: The right ovary is not visualized consistent with the patient's reported surgical history. The left ovary measures 2.6 x 1.7 x 1.9 cm. Normal arterial and venous waveforms are identified. Appearance is within normal limits for the patient's age. There is no free fluid in the cul-de-sac. IMPRESSION: 1. Overall the uterus exhibits heterogeneous echogenicity, an appearance that sometimes can be seen in the setting of adenomyosis. 2. There is interval appearance of fluid in the endometrial canal and slight irregularity of the endometrium. This could be the consequence of the reported endometrial ablation. An endometrial polyp is also in the differential diagnosis.
[2017-02-26 16:44] VITALS: BP 124/78
== END 2017-02-26 16:25 | disposition home or self-care (01) ==
LOC: UCEAST 13:15
DX: R10.2 Pelvic and perineal pain (principal); N80.0 Endometriosis of uterus; N76.0 Acute vaginitis; R03.0 Elevated blood-pressure reading, without diagnosis of hypertension; Z90.721 Acquired absence of ovaries, unilateral; Z87.891 Personal history of nicotine dependence
CPT/HCPCS: 76830; 81003; 84702; 99212; G0463

== ENCOUNTER 2017-04-24 18:28 | Emergency (ER) | payer OTHER ==
[2017-04-24 19:21] VITALS: BP 121/61
--- NOTE | 2017-04-24 19:27 | UC ---
Ear Complaint HPI - HPI Summary HPI Summary: 36 YEAR OLD FEMALE PRESENTS WITH LEFT EAR AND FACIAL PAIN. - History of Current Complaint Chief Complaint: UCRespiratory Stated Complaint: FACE AND EAR PAIN Time Seen by Provider: 04/24/17 19:25 Hx Obtained From: Patient Hx Last Menstrual Period: ablasion Onset/Duration: Sudden Onset Severity Initially: Moderate Severity Currently: Moderate Pain Scale Used: 0-10 Numeric - 5 - Allergies/Home Medications Allergies/Adverse Reactions: Allergies Allergy/AdvReac Type Severity Reaction Status Date / Time No Known Allergies Allergy Verified 04/24/17 19:18 PMH/Surg Hx/FS Hx/Imm Hx - Surgical History Surgical History: Yes Surgery Procedure, Year, and Place: Uterine Ablation, 2015, [place]; Right Oopherectomy, 2014, [place]; Cholecystectomy, ~2011, [place]; , 2004, [place] - Family History Known Family History: Positive: Cardiac Disease, Hypertension, Diabetes - Social History Alcohol Use: Rare Substance Use Type: None Smoking Status (MU): Former Smoker When Did the Patient Quit Smoking/Using Tobacco: "a year ago" 09/21/15 Household Exposure Type: Cigarettes Review of Systems Constitutional: Negative Skin: Negative Eyes: Negative ENT: Ear Ache, Sinus Pain/Tenderness Respiratory: Negative Cardiovascular: Negative Gastrointestinal: Negative Genitourinary: Negative Motor: Negative Neurovascular: Negative Musculoskeletal: Negative Neurological: Negative Psychological: Negative All Other Systems Reviewed And Are Negative: Yes Physical Exam Triage Information Reviewed: Yes Vital Signs: Initial Vital Signs Temp 37.2 C 04/24/17 19:18 Pulse 80 04/24/17 19:18 Resp 20 04/24/17 19:18 BP 121/61 04/24/17 19:18 Pulse Ox 100 04/24/17 19:18 Vital Signs Reviewed: Yes Eye Exam: Normal ENT: Positive: Nasal congestion Dental Exam: Normal Neck exam: Normal Neck: Positive: 1 Respiratory Exam: Normal Cardiovascular Exam: Normal Abdominal Exam: Normal Musculoskeletal Exam: Normal Neurological Exam: Normal Psychological Exam: Normal Skin Exam: Normal Ear Complaint Course/Dx - Differential Dx/Diagnosis Provider Diagnoses: SINUSITIS Discharge - Discharge Plan Condition: Stable Disposition: HOME Prescriptions: Amoxicillin/Clavulanate TAB* [Augmentin TAB 875*] 875 mg PO BID #14 tab Methylprednisolone [Medrol Dosepak 4 MG*] 4 mg PO .SEE HANNAH INSTRUCTION #21 tab Neomyc/Polym/HC 1% OTIC SUSP* [Cortisporin Otic Susp 1%*] 4 drop LEFT EAR TID # 1 btl Patient Education Materials: Sinusitis (ED), Otitis Externa (ED) Referrals: Tania Weiner MD [Primary Care Provider] -
== END 2017-04-24 19:30 | disposition home or self-care (01) ==
LOC: UCEAST 18:28
DX: J32.9 Chronic sinusitis, unspecified (principal); Z87.891 Personal history of nicotine dependence
CPT/HCPCS: 99212; G0463

== ENCOUNTER 2017-08-06 15:50 | Emergency (ER) | payer OTHER ==
--- OUTSIDE RECORDS SUMMARY | 2017-08-06 16:02 | XMS REPORT ---
:1980 External Reference #:[id number] Author Organization [employer] Address [address] [place] [address] Phone [phone] Care Team Providers Name Role Phone Tania Weiner M.D. Care Team Information Underliner Unavailable Payers Type Date Identification Numbers Payment Provider Subscriber Commercial Policy Number: [id number] [employer] Munira Alvarez PayID: [id number] [address] [address] [place] [address] Medigap Part B Policy Number: [id number] [facility] [place] Munira Alvarez PayID: [id number] [address] [place] [address] Problems Description No Information Family History Date Family Member(s) Problem(s) Comments General Colon Cancer MOTHER OF. General Bladder Cancer General mother and father cancer, family hx of heart diease,hypertenion,,diabetes Social History Type Date Description Comments Cigarette Use Light tobacco smoker (10 or fewer cigarettes/day) ETOH Use Occasionally consumes alcohol Recreational Drug Use Denies Drug Use Daily Caffeine Consumes on average 3 cups of tea per day Allergies, Adverse Reactions, Alerts Date Description Reaction Status Severity Comments 09/17/2005 Nka active Medications Medication Date Status Form Strength Qnty SIG Indications Ordering Provider Sertraline HCL 06/10 Active Tablets 50mg 90tab 1 by mouth F34.1 Tania /2016 roman every day Isaias Weiner Ankle 12/27 Active Misc 1unit as directed S93.401A Tania Keane/Salvador Aisha Ford/Betina/Bao Esparza Large Crutches-Alumi 12/27 Active Misc 1pair as directed S93.401A Tania salas Florence Weiner M.D. Vitamin D-3 09/11 Active Capsules 1000Unit 180ca 2 by mouth ps every day Isaias Weiner Sertraline HCL 05/08 Hx Tablets 25mg 30tab 1 by mouth F34.1 Tania s every day Mindi Weiner M.D. 06/10 Acetaminophen- 12/27 Hx Tablets 300-30mg 30tab 1 by mouth S93.401A Tania Codeine #3 s every 6 hours Regine, - as needed for M.DArun 05/08 Levothyroxine 09/11 Hx Tablets 50mcg 90tab 1 by mouth Tania s every day Mindi Weiner M.D. 05/08 Elimite 12/06 Hx Cream 5% 60gm as Dir Tania Mindi Weiner M.D. 09/11 Advil 09/17 Hx Tablets 400mg 1 PO prn Tania Mindi Weiner M.D. 09/11 Depo-Provera 09/17 Hx Injection 150mg/ml Tania Mindi Weiner M.D. 09/11 Monistat 7 09/17 Hx Cream 2% 30uni 1 623.8 ts applicatorful Regine - pv qd Aftab.Chiquita 09/11 Buspirone 09/17 Hx Tablets 10mg 60tab po bid 300.00 Tania s Mindi Weiner M.D. 09/11 Immunizations CPT Code Status Date Vaccine Lot # [id number] Given 03/22/2003 Tetanus And Diptheria Toxiods [id number] Given 03/22/2003 Influenza Vaccine Vital Signs Date Vital Result Comment 07/23/2017 BP Systolic 135 mmHg BP Diastolic 80 mmHg Height 64 inches 5'4" Weight 240.00 lb BMI (Body Mass Index) 41.2 kg/m2 06/10/2017 BP Systolic 112 mmHg BP Diastolic 70 mmHg Height 64 inches 5'4" Weight 235.00 lb BMI (Body Mass Index) 40.3 kg/m2 05/08/2017 BP Systolic 128 mmHg BP Diastolic 80 mmHg Height 64 inches 5'4" Weight 234.00 lb BMI (Body Mass Index) 40.2 kg/m2 12/27/2016 BP Systolic 122 mmHg BP Diastolic 80 mmHg 09/25/2016 BP Systolic 130 mmHg BP Diastolic 80 mmHg 09/11/2016 BP Systolic 118 mmHg BP Diastolic 76 mmHg Height 64 inches 5'4" Weight 227.00 lb BMI (Body Mass Index) 39.0 kg/m2 09/17/2005 BP Systolic 120 mmHg BP Diastolic 70 mmHg Height 64 inches 5'4" Results Test Date Test Result H/L Range Note CBC 05/08/2017 White Blood Count 5.4 K/uL 3.1-10.7 Red Blood Count 4.52 M/uL 3.90-5.40 Hemoglobin 13.7 gm/dL 11.6-15.8 Hematocrit 41.0 % 36.0-46.1 Mean Cell Volume 90.7 fl 80.9-99.0 Mean Corpuscular HGB 30.3 pg 25.9-32.7 Mean Corpuscular HGB Conc 33.4 g/dL 30.8-34.3 Platelet Count 196 K/uL 150-400 Red Cell Distri Width %CV 12.6 % 11.7-14.4 Mean Platelet Volume 11.3 fL 8.9-12.4 Glucose 05/08/2017 Glucose 80 mg/dL 74-106 Reflex add FT3? Y Reflex add FT4? Y BUN 05/08/2017 BUN 9 mg/dL 7-18 Reflex add FT3? Y Reflex add FT4? Y Creatinine 05/08/2017 Creatinine 0.9 mg/dL 0.6-1.3 Reflex add FT3? Y Reflex add FT4? Y Sodium 05/08/2017 Sodium 141 mmol/L 136-145 Reflex add FT3? Y Reflex add FT4? Y Potassium 05/08/2017 Potassium 4.4 mmol/L 3.5-5.1 Reflex add FT3? Y Reflex add FT4? Y Chloride 05/08/2017 Chloride 107 mmol/L 98-107 Reflex add FT3? Y Reflex add FT4? Y Carbon Dioxide 05/08/2017 Carbon Dioxide 27 mmol/L 21-32 Reflex add FT3? Y Reflex add FT4? Y TSH Reflex FT4 And/Or FT3 05/08/2017 Thyroid Stim Hormone 2.47 uIU/mL 0.30-4.20 Reflex add FT3? Y Reflex add FT4? Y Laboratory test finding 02/05/2017 Sedimentation Rate 30 mm/hr High 0-20 1, 2 CBS W/Automated Diff 02/05/2017 White Blood Count 5.8 K/uL 3.1-10.7 1 Red Blood Count 4.46 M/uL 3.90-5.40 1 Hemoglobin 13.4 gm/dL 11.6-15.8 1 Hematocrit 40.2 % 36.0-46.1 1 Mean Cell Volume 90.1 fl 80.9-99.0 1 Mean Corpuscular HGB 30.0 pg 25.9-32.7 1 Mean Corpuscular HGB Conc 33.3 g/dL 30.8-34.3 1 Platelet Count 177 K/uL 150-400 1 Red Cell Distri Width SD 40.9 fl 3-47 1 Red Cell Distri Width %CV 12.7 % 11.7-14.4 1 Mean Platelet Volume 11.4 fL 8.9-12.4 1 Neut% 60.7 % 40.4-72.8 1 Lymph % 32.0 % 20.0-42.0 1 [place] % 5.5 % 4.3-13.2 1 Eo% 1.6 % 0.0-6.6 1 Bas% 0.2 % 0.0-1.1 1 Neut# 3.51 K/uL 1.8-7.0 1 Lymph # 1.85 K/uL 1.0-4.0 1 Defiance # 0.32 K/uL 0.3-0.9 1 Eos # 0.09 K/uL 0.0-0.5 1 Baso # 0.01 K/uL 0.0-0.1 1 Laboratory test finding 02/05/2017 Thyroid Stim Hormone 2.02 uIU/mL 0.30- 4.20 Free T4 0.90 ng/dL 0.76-1.46 Basic Metabolic Panel 02/05/2017 Glucose 83 mg/dL 74-106 BUN 9 mg/dL 7-18 Creatinine 0.9 mg/dL 0.6-1.3 Glom Filtration Rate, Estimate >60 mL/min >60 If >60 mL/min >60 3 BUN/Creat 10.0 ratio Sodium 140 mmol/L 136-145 Potassium 3.9 mmol/L 3.5-5.1 Chloride 105 mmol/L 98-107 Carbon Dioxide 27 mmol/L 21-32 Anion Gap 8 mEq/L 8-16 Calcium 9.2 mg/dL 8.5-10.1 Lipid Panel 02/05/2017 Cholesterol 237 mg/dL High <200 4 Triglycerides 264 mg/dL High <150 5 HDL Cholesterol 56 mg/dL >40 6 LDL-Cholesterol 128 mg/dL < 100 7 CBC Auto Diff 09/21/2016 White Blood Count 8.1 10^3/uL 3.5-10.8 Red Blood Count 4.60 10^6/uL 4.0-5.4 Hemoglobin 13.4 g/dL 12.0-16.0 Hematocrit 41 % 35-47 Mean Corpuscular Volume 88 fL 80-97 Mean Corpuscular Hemoglobin 29 pg 27-31 Mean Corpuscular HGB Conc 33 g/dL 31-36 Red Cell Distribution Width 13 % 10.5-15 Platelet Count 169 10^3/uL 150-450 Mean Platelet Volume 9 um3 7.4-10.4 Abs Neutrophils 5.8 10^3/uL 1.5-7.7 Abs Lymphocytes 1.8 10^3/uL 1.0-4.8 Abs Monocytes 0.4 10^3/uL 0-0.8 Abs Eosinophils 0 10^3/uL 0-0.6 Abs Basophils 0.1 10^3/uL 0-0.2 Abs Nucleated RBC 0 10^3/uL Granulocyte % 71.2 % 38-83 Lymphocyte % 22.6 % Low 25-47 Monocyte % 4.9 % 1-9 Eosinophil % 0.6 % 0-6 Basophil % 0.7 % 0-2 Nucleated Red Blood Cells % 0 Comp Metabolic Panel 09/21/2016 Sodium 138 mmol/L 133-145 Potassium 4.1 mmol/L 3.5-5.0 Chloride 103 mmol/L 101-111 Co2 Carbon Dioxide 27 mmol/L 22-32 Anion Gap 8 mmol/L 2-11 Glucose 100 mg/dL 70-100 Blood Urea Nitrogen 10 mg/dL 6-24 Creatinine 0.86 mg/dL 0.51-0.95 BUN/Creatinine Ratio 11.6 8-20 Calcium 9.5 mg/dL 8.6-10.3 Total Protein 7.1 g/dL 6.4-8.9 Albumin 3.9 g/dL 3.2-5.2 Globulin 3.2 g/dL 2-4 Albumin/Globulin Ratio 1.2 1-3 Total Bilirubin 0.50 mg/dL 0.2-1.0 Alkaline Phosphatase 48 U/L 34-104 Alt 14 U/L 7-52 Ast 15 U/L 13-39 Egfr Non- 74.7 >60 Egfr 96.0 >60 8 CBC W/ Diff & PLT 09/20/2016 WBC 4.9 thous/L 3.8-10.8 9 RBC 4.60 mill/L 3.80-5.10 9 Hemoglobin 13.4 g/dL 11.7-15.5 9 Hematocrit 41.1 % 35.0-45.0 9 MCV 89.4 FL 80.0-100.0 9 MCH 29.1 pg 27.0-33.0 9 MCHC 32.5 g/dL 32.0-36.0 9 RDW 12.9 % 11.0-15.0 9 Platelet Count 166 thous/L 140-400 9 Platelet Sufficiency PENDING 9 MPV 10.0 FL 7.5-12.5 9 Neutrophils,Absolute 2810 cells/L 9210-7972 9 Bands,Absolute PENDING 9 Metamyelocytes,Absolute PENDING 9 Myelocytes,Absolute PENDING 9 Promyelocytes,Absolute PENDING 9 Lymphocytes,Absolute 1690 cells/L 850-3900 9 Monocytes,Absolute 240 cells/L 200-950 9 Eosinophils,Absolute 130 cells/L 15-500 9 Basophils,Absolute 20 cells/L 0-200 9 Blast Cells,Absolute PENDING 9 Nucleated RBC,Absolute PENDING 9 Total Neutrophils,% 57 % 40-75 9 Bands,% PENDING 9 Metamyelocytes,% PENDING 9 Myelocytes,% PENDING 9 Promyelocytes,% PENDING 9 Total Lymphocytes,% 35 % 12-47 9 Monocytes,% 5 % 4-12 9 Eosinophils,% 3 % 0-4 9 Basophils,% 0 % 0-1 9, 10 Blasts,% PENDING 9 Nucleated RBC PENDING 9 RBC Morphology PENDING 9 Anisocytosis PENDING 9 Poikilocytosis PENDING 9 Microcytosis PENDING 9 Macrocytosis PENDING 9 Polychromasia PENDING 9 Hypochromasia PENDING 9 Target Cells PENDING 9 Basophilic Stippling PENDING 9 Comment PENDING 9 TSH & T4,Free 09/20/2016 TSH 4.37 mIU/L 0.40-4.50 9, 11 T4,Free 1.1 ng/dL 0.8-1.8 9 Laboratory test finding 09/20/2016 Esr,Westergren 14 MM/HR 0-20 9 Lipid Panel 09/20/2016 Cholesterol 225 mg/dL High 125-200 9 HDL Cholesterol 44 mg/dL Low > Or=46 9 Cholesterol/HDL Ratio 5.1 High < Or=5.0 9 LDL Chol,Calculated 141 mg/dL High <130 9, 12 Triglycerides 199 mg/dL High <150 9 Non-HDL Cholesterol 180 mg/dL High 9, 13 Basic Metabolic Panel 09/20/2016 Sodium 138 mmol/L 135-146 9 Potassium 4.7 mmol/L 3.5-5.3 9 Chloride 103 mmol/L 98-110 9 Carbon Dioxide 28 mmol/L 20-31 9 Calcium 9.4 mg/dL 8.6-10.2 9 Glucose 86 mg/dL 65-99 9, 14 Urea Nitrogen 10 mg/dL 7-25 9 Creatinine 0.88 mg/dL 0.50-1.10 9 BUN/Creatinine Ratio 11.5 6-22 9 Egfr Non-Afr. French 85 ML/MIN/1.73M2 > Or=60 9 Egfr 98 ML/MIN/1.73M2 > Or=60 9 1 E03.9 N83.201 M62.9 2 Method: Sediplast Modified Westergren 3 Note: Persistent reduction for 3 months or more in an eGFR <60 mL/min/1.73 m2 defines CKD. Patients with eGFR values >/=60 mL/min/1.73 m2 may also have CKD if evidence of persistent proteinuria is present. The original MDRD equation for estimated GFR is not valid for patients less than 18 years of age. Additional information may be found at www.kdoqi.org. 4 Reference Guidelines*: Desirable: ........... < 200 mg/dL Borderline High: ..... 200-239 mg/dL High: ................ >=240 mg/dL * The National Cholesterol Education Program (NCEP) 5 Reference Guidelines*: Normal: ............. < 150 mg/dL Borderline High: .... 150-199 mg/dL High: ............... 200-499 mg/dL Very High: .......... > 500 mg/dL * Source: National Cholesterol Education Program (NCEP) 6 Reference Guidelines*: Low HDL: ..... < 40 mg/dL Normal: ..... 40-60 mg/dL Desirable: ... > 60 mg/dL *The National Cholesterol Education Program(NCEP) 7 Reference Guidelines*: Optimal:........... <100 mg/dL Near Optimal....... 100-129 mg/dL Borderline High.... 130-159 mg/dL High............... 160-189 mg/dL Very High.......... >=190 mg/dL * Source: National Cholesterol Education Program (NCEP) 8 Because ethnic data is not always readily available, this report includes an eGFR for both -Americans and non- Americans. The National Kidney Disease Education Program (NKDEP) does not endorse the use of the MDRD equation for patients that are not between the ages of 18 and 70, are , have extremes of body size, muscle mass, or nutritional status, or are non- or non-. According to the National Kidney Foundation, irrespective of diagnosis, the stage of the disease is based on the level of kidney function: Stage Description GFR(mL/min/1.73 m(2)) 1 Kidney damage with normal or decreased GFR 90 2 Kidney damage with mild decrease in GFR 60-89 3 Moderate decrease in GFR 30-59 4 Severe decrease in GFR 15-29 5 Kidney failure <15 (or dialysis) 9 FASTING 10 Relative blood cell counts (%) should be compared with absolute cell counts (cells/mcL). Relative counts may not be clinically meaningful if the absolute count of one or more cell type is decreased. Reference ranges for relative cell counts derived from: A Manual of Laboratory and Diagnostics Tests, 9th Ed, [employer], 2015. Pediatric Reference Intervals, 7th Ed, [facility] Press, 2011. 11 REFERENCE RANGES BELOW ARE APPLICABLE TO FEMALES FIRST TRIMESTER - 0.26 - 2.66 mIU/L SECOND TRIMESTER - 0.55 - 2.73 mIU/L THIRD TRIMESTER - 0.43 - 2.91 mIU/L 12 LDL-CHOLESTEROL RISK CATEGORY* GOAL VERY HIGH (E.G. DIABETES + CVD) <70 MG/DL HIGH (DIABETICS; CHD RISK EQUIVALENTS) <100 MG/DL MODERATELY HIGH (MULTIPLE(2+) RISK FACTORS) <130 MG/DL 0 TO 1 RISK FACTORS <160 MG/DL * NCEP REPORT. CIRCULATION 2004; 110: 227-239 13 Target for non-HDL cholesterol is 30 mg/dL higher than LDL cholesterol target. 14 GLUCOSE REFERENCE RANGE BASED ON FASTING SPECIMEN. Procedures Date CPT Code Description Status Comment 09/20/2016 71386 Echocardiography Completed 12/20/2000 Mammogram Completed Encounters Type Date Location Provider CPT E/M Dx Office Visit 06/10/2017 2:45p Main Office Tania Weiner M.D. 69973 F34.1 Office Visit 05/08/2017 3:00p Main Office Tania Weiner M.D. 55878 F34.1 E03.9 Office Visit 12/27/2016 11:45a Main Office Tania Weiner M.D. 41205 S93.401A M84.361D Office Visit 09/25/2016 11:15a Main Office Tania Weiner M.D. 79376 E03.9 E66.09 M54.2 E78.5 F34.1 Office Visit 09/11/2016 10:45a Main Office Tania Weiner M.D. 14358 M25.519 E03.9 N83.201 Office Visit 09/17/2005 3:00p Main Office Tania Weiner M.D. 62010 623.8 300.00 278.00 Office Visit 10/11/2003 11:30a Main Office Tania Weiner M.D. 10950 493.00 723.10 Plan of Care 06/10/2017 - Tania Weiner M.D.F34.1 Dysthymic disorderNew Medication:Sertraline HCL 50 mgComments:discussed healthy diet exercise will start sertraline check labs to rule out thyroid problems or anemia revisit in 1 month . Thinking about counseling
[2017-08-06 16:39] VITALS: BP 117/65
--- NOTE | 2017-08-06 18:34 | UC ---
Mandeep Munoz Stephanie, scribed for Alicia Shaw MD on 08/06/17 at 1815 . Throat Pain/Nasal Bharathi HPI - HPI Summary HPI Summary: The pt is a 37 y/o F presenting to with sore throat that began five days ago. Symptoms include cough - non productive, R side ear pain, abd pain and chills. The pt denies nausea, vomiting, and fever. Pt also reports body aches. No analgesia, OTC products taken. + po. No cp, sob, and pain. Pt with nomal po. Pt did not get flu vaccine this year. PT states has taken Motrin without relief of myalgia. Pt's daughter with strep. Pt's medications reviewed this visit. - History of Current Complaint Chief Complaint: UCEar Stated Complaint: ST,COUGH,HEADACHE Time Seen by Provider: 08/06/17 17:23 Hx Obtained From: Patient Hx Last Menstrual Period: ablasion Onset/Duration: Lasting Days - 5 Severity: Moderate Cough: Nonproductive Associated Signs & Symptoms: Positive: Wheezing. Negative: Fever, Vomiting - Allergies/Home Medications Allergies/Adverse Reactions: Allergies Allergy/AdvReac Type Severity Reaction Status Date / Time No Known Allergies Allergy Verified 08/06/17 16:39 Home Medications: Home Medications Ibuprofen TAB* [Motrin TAB* 600 MG] 600 mg PO BID 08/06/17 [History Confirmed ] Sertraline* 50 mg PO DAILY 08/06/17 [History Confirmed 08/06/17] PMH/Surg Hx/FS Hx/Imm Hx Previously Healthy: Yes - Pt denies all medical history. - Surgical History Surgical History: Yes Surgery Procedure, Year, and Place: Uterine Ablation, 2015, [place]; Right Oopherectomy, 2014, [place]; Cholecystectomy, ~2011, [place]; , 2004, [place] - Family History Known Family History: Positive: Cardiac Disease, Hypertension, Diabetes, Other - cancer - Social History Occupation: Unemployed Lives: With Family Alcohol Use: Rare Substance Use Type: None Smoking Status (MU): Former Smoker When Did the Patient Quit Smoking/Using Tobacco: "a year ago" 09/21/15 Household Exposure Type: Cigarettes - Immunization History Most Recent Influenza Vaccination: no Review of Systems Constitutional: Chills Skin: Negative Eyes: Negative ENT: Ear Ache - R ear Respiratory: Cough Gastrointestinal: Abdominal Pain All Other Systems Reviewed And Are Negative: Yes Physical Exam Triage Information Reviewed: Yes Appearance: Well-Appearing, No Pain Distress, Well-Nourished Vital Signs: Initial Vital Signs Temp 98.3 F 08/06/17 16:33 Pulse 90 08/06/17 16:33 Resp 18 08/06/17 16:33 BP 117/65 08/06/17 16:33 Pulse Ox 100 08/06/17 16:33 Vital Signs Reviewed: Yes Eye Exam: Normal Eyes: Positive: Conjunctiva Clear ENT: Positive: Hearing grossly normal, Nasal congestion, TMs normal, Tonsillar exudate, Other - TM x 2 wnl turbinates inflammed, boggy + PND uvula midline no exudate, no erythema Dental Exam: Normal Neck exam: Normal Neck: Positive: Supple, Nontender, No Lymphadenopathy Respiratory Exam: Normal Respiratory: Positive: Chest non-tender, Lungs clear, Normal breath sounds, No respiratory distress, No accessory muscle use, Other: - rare cough no w/r speaking full, easy sentences Cardiovascular Exam: Normal Cardiovascular: Positive: RRR, No Murmur, Pulses Normal Abdominal Exam: Normal Abdomen Description: Positive: Nontender, No Organomegaly, Soft Bowel Sounds: Positive: Present Musculoskeletal Exam: Normal Musculoskeletal: Positive: Strength Intact Neurological Exam: Normal Neurological: Positive: Alert Psychological Exam: Normal Psychological: Positive: Normal Response To Family Skin Exam: Normal Re-Evaluation - Re-Evaluation First Eval Re-Evaluation Time: 19:43 Change: Unchanged - Strep test negative. Throat Pain/Nasal Course/Dx - Course Assessment/Plan: Pt presents with sore throat, congestion, cough and pnd x 5 days. Pt with expsoure to strep. family member in room with pt + flu. Will check flu, strep. symptomatic treatment. Pt in agreement with plan - Differential Dx/Diagnosis Provider Diagnoses: pharyngitis. strep exposure Discharge - Discharge Plan Condition: Stable Disposition: HOME Prescriptions: Oseltamivir CAP* [Tamiflu CAP*] 75 mg PO DAILY #10 cap Patient Education Materials: Viral Syndrome (ED) Referrals: Tania Weiner MD [Primary Care Provider] - Additional Instructions: - Stay well hydrated. Drink plenty of non-alcoholic, non-caffinated beverages - you have been prescribed the treatment to try to prevent the flu because someone inyour house has the flu - okay to alternate ibuprofen (Advil, Motrin) and tylenol every 3 hours as needed for pain _ These infections are spread by secretions - do NOT share eating or drinking utensils - clean items you share with other people such as cell phones, computer mouse, TV remote, computer tablets, etc - Contact your doctor to schedule a follow-up appointment. Contact your doctor or go to the emergency department with questions or concerns The documentation as recorded by the Mandeep eckert Stephanie accurately reflects the service I personally performed and the decisions made by me, Alicia Shaw MD.
== END 2017-08-06 20:06 | disposition home or self-care (01) ==
LOC: UCEAST 15:50
DX: J02.9 Acute pharyngitis, unspecified (principal); R05 Cough; H92.01 Otalgia, right ear; R10.9 Unspecified abdominal pain; R68.83 Chills (without fever); Z90.721 Acquired absence of ovaries, unilateral; Z90.49 Acquired absence of other specified parts of digestive tract; Z87.891 Personal history of nicotine dependence
CPT/HCPCS: 87502; 87651; 99202; G0463

== ENCOUNTER 2017-11-26 12:24 | Emergency (ER) | payer OTHER ==
--- OUTSIDE RECORDS SUMMARY | 2017-11-26 12:30 | XMS REPORT ---
:1980 External Reference #:[id number] Author Organization [facility] Address [address], [address] [place] [address] Phone [phone] Care Team Providers Name Role Phone Tania Weiner MD Care Team Information Teacher Hearing Impaired Unavailable Tania Weiner MD Primary Care Physician Unavailable Payers Type Date Identification Numbers Payment Provider Subscriber Commercial Policy Number: [id number] [facility] Munira Alvarez PayID: [id number] [address] [place] [address] Workers Compensation Policy Number: AA [employer] Munira Alvarez PayID: [id number] [place] [address] Problems Date Description Provider Status Onset: 10/30/2017 Right upper quadrant pain Jorge Winn MD Active Onset: 10/30/2017 Family history of malignant neoplasm of Jorge Winn MD Active gastrointestinal tract Onset: 10/30/2017 Large liver Jorge Winn MD Active Onset: 10/30/2017 Indeterminate colitis Jorge Winn MD Active Family History Date Family Member(s) Problem(s) Comments Mother Liver Cancer Social History Type Date Description Comments Marital Status Home Environment Lives With step mom and daughter 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 Unemployed Cigarette Use Never Smoked Cigarettes Smokeless Tobacco Never Used Smokeless Tobacco ETOH Use Occasionally consumes alcohol Recreational Drug Use Denies Drug Use Smoking Patient is a former smoker Daily Caffeine Current Caffeine User 3 cups tea daily Allergies, Adverse Reactions, Alerts Date Description Reaction Status Severity Comments 12/27/2016 NKDA active Medications Medication Date Status Form Strength Qnty SIG Indications Ordering Provider Omeprazole 10/30/ Active Capsules 40mg 90cap 1 tab by R10.[address] roman Winn MD every day every morning Dulcolax 10/30/ Active Tablets DR 5mg 4tabs 4 tablets Z80.0 2017 taken souleymane Winn MD 8pm the day before the procedure Moviprep 10/30/ Active Solution 100gm 1unit as Z80.0 2017 Rec s maame Winn MD Ventolin HFA / Active Aerosol 108(90Bas take 2 Unknown 0000 e) puffs mcg/Act every 6 hours as needed for shortness of breath. Nystatin-Triamcin / Active Cream 375357-3. apply to Unknown olone 0000 1Unit/GM- affected % areas twice daily until rash is gone Ibuprofen / Active Tablets 600mg 1 po q 6h Unknown 0000 prn Sertraline HCL / Active Tablets 50mg 1 by mouth Unknown 0000 every day Cyclobenzaprine / Active Tablets 10mg 1 by mouth Unknown HCL 0000 three times a day as needed muscle spasms Acetaminophen-Cod / Hx Tablets 300-30mg 1 by mouth Unknown eine #3 0000 q6hr as needed severe pain, us if ibuprofen not effective Vitamin D3 / Hx Tablets 2 tablets Unknown Complete 0000 daily. Vital Signs Date Vital Result Comment 10/30/2017 BP Systolic Sitting Left Arm 132 mmHg BP Diastolic Sitting Left Arm 74 mmHg Heart Rate 71 /min Respiratory Rate 18 /min Height 64 inches 5'4" Weight 239.00 lb BMI (Body Mass Index) 41.0 kg/m2 BSA (Body Surface Area) 2.11 m2 [place] body weight in kilograms 54 12/27/2016 BP Systolic Sitting Left Arm 116 mmHg BP Diastolic Sitting Left Arm 79 mmHg Heart Rate 89 /min Height 64 inches 5'4" Weight 231.00 lb BMI (Body Mass Index) 39.6 kg/m2 BSA (Body Surface Area) 2.08 m2 [place] body weight in kilograms 54 Results Test Date Test Result H/L Range Note Comprehensive Metabolic Panel 10/30/2017 Glucose 82 mg/dL 74-106 1 BUN 10 mg/dL 7-18 1 Creatinine 0.9 mg/dL 0.6-1.3 1 Glom Filtration Rate, Estimate >60 mL/min >60 1 If >60 mL/min >60 1, 2 BUN/Creat 11.1 ratio 1 Sodium 139 mmol/L 136-145 1 Potassium 4.4 mmol/L 3.5-5.1 1 Chloride 106 mmol/L 98-107 1 Carbon Dioxide 28 mmol/L 21-32 1 Anion Gap 5 mEq/L Low 8-16 1 Calcium 9.1 mg/dL 8.5-10.1 1 Total Protein 7.7 g/dL 6.4-8.2 1 Albumin 3.7 g/dL 3.4-5.0 1 Globulin 4.0 g/dL 1.9-4.3 1 Alb/Glob 0.9 ratio 1 Bilirubin,Total 0.4 mg/dL 0.2-1.0 1 Sgot/Ast 22 U/L 15-37 1 SGPT/Alt 24 U/L 12-78 1 Alkaline Phosphatase 66 U/L 45-117 1 Laboratory test finding 10/30/2017 Amylase 28 U/L 25-115 1 Lipase 94 U/L 56-289 1 Anti-Nuclear Antibodies Direct <pending> 1 Mitochondrial (M2) Antibodies <pending> 1 Actin (Smooth Muscle) Antibody <pending> 1 Pmcbt-2-Zxdnhnnbrvo,Serum <pending> 1 Ceruloplasmin <pending> 1 Laboratory test finding 10/30/2017 Hepatitis A Antibody -IgM Negative Negative 1 Hepatitis A AB, Total <pending> 1 Hepatitis B Core Antibody-IgM Negative Negative 1, 3 Hep B Core AB Total <pending> 1 Hepatitis B Surface Antibody Non Reactive . 1, 4 Hepatitis B Surface Antigen Negative Negative 1 Hepatitis C Antibody < 0.1 s/corat 0.0-0.9 1, 5 Iron-Tibc-%Sat 10/30/2017 Serum Iron 49 g/dL Low 50-170 1 Total Iron Binding Capacity 303 g/dL 250-450 1 Transferrin %Saturation 16 % 12-57 1 Laboratory test finding 10/30/2017 Ferritin 43 ng/mL 8-252 1 Sedimentation Rate 43 mm/hr High 0-20 1, 6 C-Reactive Protein,Quant 7.4 mg/L High <3.0 1 CBS W/Automated Diff 08/22/2017 White Blood Count 6.2 K/uL 3.1-10.7 7 Red Blood Count 4.71 M/uL 3.90-5.40 7 Hemoglobin 13.6 gm/dL 11.6-15.8 7 Hematocrit 41.3 % 36.0-46.1 7 Mean Cell Volume 87.7 fl 80.9-99.0 7 Mean Corpuscular HGB 28.9 pg 25.9-32.7 7 Mean Corpuscular HGB Conc 32.9 g/dL 30.8-34.3 7 Platelet Count 237 K/uL 155-360 7 Red Cell Distri Width SD 40.2 fl 3-47 7 Red Cell Distri Width %CV 13.0 % 11.7-14.4 7 Mean Platelet Volume 10.5 fL 8.9-12.4 7 Neut% 63.0 % 40.4-72.8 7 Lymph % 27.6 % 20.0-42.0 7 [place] % 5.7 % 4.3-13.2 7 Eo% 3.2 % 0.0-6.6 7 Bas% 0.5 % 0.0-1.1 7 Neut# 3.89 K/uL 1.8-7.0 7 Lymph # 1.70 K/uL 1.0-4.0 7 [place] # 0.35 K/uL 0.3-0.9 7 Eos # 0.20 K/uL 0.0-0.5 7 Baso # 0.03 K/uL 0.0-0.1 7 Laboratory test finding 08/22/2017 Slide Review . 7, 8 Laboratory test finding 02/05/2017 Thyroid Stim Hormone 2.02 uIU/mL 0.30- 4.20 9 Free T4 0.90 ng/dL 0.76-1.46 9 LDL Cholesterol Profile 02/05/2017 Cholesterol 237 mg/dL High <200 9, 10 Triglycerides 264 mg/dL High <150 9, 11 HDL Cholesterol 56 mg/dL >40 9, 12 LDL-Cholesterol 128 mg/dL < 100 9, 13 Basic Metabolic Panel 02/05/2017 Glucose 83 mg/dL 74-106 9 BUN 9 mg/dL 7-18 9 Creatinine 0.9 mg/dL 0.6-1.3 9 Glom Filtration Rate, Estimate >60 mL/min >60 9 If >60 mL/min >60 9, 14 BUN/Creat 10.0 ratio 9 Sodium 140 mmol/L 136-145 9 Potassium 3.9 mmol/L 3.5-5.1 9 Chloride 105 mmol/L 98-107 9 Carbon Dioxide 27 mmol/L 21-32 9 Anion Gap 8 mEq/L 8-16 9 Calcium 9.2 mg/dL 8.5-10.1 9 Laboratory test finding 02/05/2017 Sedimentation Rate 30 mm/hr High 0-20 9, 15 CBS W/Automated Diff 02/05/2017 White Blood Count 5.8 K/uL 3.1-10.7 9 Red Blood Count 4.46 M/uL 3.90-5.40 9 Hemoglobin 13.4 gm/dL 11.6-15.8 9 Hematocrit 40.2 % 36.0-46.1 9 Mean Cell Volume 90.1 fl 80.9-99.0 9 Mean Corpuscular HGB 30.0 pg 25.9-32.7 9 Mean Corpuscular HGB Conc 33.3 g/dL 30.8-34.3 9 Platelet Count 177 K/uL 150-400 9 Red Cell Distri Width SD 40.9 fl 3-47 9 Red Cell Distri Width %CV 12.7 % 11.7-14.4 9 Mean Platelet Volume 11.4 fL 8.9-12.4 9 Neut% 60.7 % 40.4-72.8 9 Lymph % 32.0 % 20.0-42.0 9 [place] % 5.5 % 4.3-13.2 9 Eo% 1.6 % 0.0-6.6 9 Bas% 0.2 % 0.0-1.1 9 Neut# 3.51 K/uL 1.8-7.0 9 Lymph # 1.85 K/uL 1.0-4.0 9 [place] # 0.32 K/uL 0.3-0.9 9 Eos # 0.09 K/uL 0.0-0.5 9 Baso # 0.01 K/uL 0.0-0.1 9 Order 12/27/2016 Walker 2, Inline Pneumatic Short Medium <pending> 1 R10.11, R16.0 2 Note: Persistent reduction for 3 months or more in an eGFR <60 mL/min/1.73 m2 defines CKD. Patients with eGFR values >/=60 mL/min/1.73 m2 may also have CKD if evidence of persistent proteinuria is present. The original MDRD equation for estimated GFR is not valid for patients less than 18 years of age. Additional information may be found at www.kdoqi.org. 3 Performed at: RN - [facility] [address] [id number] Visor Installer: Kalyn Verdin MD, Phone: [phone] 4 Non Reactive: Inconsistent with immunity, less than 10 mIU/mL Reactive: Consistent with immunity, greater than 9.9 mIU/mL 5 INFCE Result Units: s/co ratio Negative: < 0.8 Indeterminate: 0.8 - 0.9 Positive: > 0.9 The CDC recommends that a positive HCV antibody result be followed up with a HCV Nucleic Acid Amplification test (379016). 6 Method: Sediplast Modified Westergren 7 R10.11 RUQ PAIN,E66.01 I10 E03.9 R10.11 8 Instrument flagged sample for slide review. Less than 10% Bands seen, no other immature WBC's seen. RBC morphology essentially normal. Platelet estimate=NORMAL 9 E03.9 N83.201 M62.9 10 Reference Guidelines*: Desirable: ........... < 200 mg/dL Borderline High: ..... 200-239 mg/dL High: ................ >=240 mg/dL * The National Cholesterol Education Program (NCEP) 11 Reference Guidelines*: Normal: ............. < 150 mg/dL Borderline High: .... 150-199 mg/dL High: ............... 200-499 mg/dL Very High: .......... > 500 mg/dL * Source: National Cholesterol Education Program (NCEP) 12 Reference Guidelines*: Low HDL: ..... < 40 mg/dL Normal: ..... 40-60 mg/dL Desirable: ... > 60 mg/dL *The National Cholesterol Education Program(NCEP) 13 Reference Guidelines*: Optimal:........... <100 mg/dL Near Optimal....... 100-129 mg/dL Borderline High.... 130-159 mg/dL High............... 160-189 mg/dL Very High.......... >=190 mg/dL * Source: National Cholesterol Education Program (NCEP) 14 Note: Persistent reduction for 3 months or more in an eGFR <60 mL/min/1.73 m2 defines CKD. Patients with eGFR values >/=60 mL/min/1.73 m2 may also have CKD if evidence of persistent proteinuria is present. The original MDRD equation for estimated GFR is not valid for patients less than 18 years of age. Additional information may be found at www.kdoqi.org. 15 Method: Sediplast Modified Westergren Procedures Date CPT Code Description Status Comment 06/30/2007 66629 Colonoscopy With Biopsy Completed 06/30/2007 Colonoscopy Completed Document: 06/30/07 - Colonoscopy & BX 05/25/1998 Colonoscopy Completed Document: 05/25/98 - Colonoscopy Encounters Type Date Location Provider CPT E/M Dx Office Visit 10/30/2017 1:15p [place] [address] R10.11 Z80.0 R16.0 K52.3 Office Visit 12/27/2016 2:45p Orthopaedic Office [place], [address] M25.571 [facility] S93.411A Office Visit 06/19/2007 9:50a JOYA Soto M.D. 56193 578.1 Plan of Care Future Appointment(s):12/05/2017 9:00 am - Jorge Winn MD at Operating Room01/01 1:00 pm - Jorge Winn MD at GI10/30/2017 - Jorge Winn MDR10.11 Right upper quadrant painNew Medication:Omeprazole 40 mgNew Labs:Urine Ala/PBG/ ProphyC1 Esterase Inhibit FuncC1 Esterase Inhibit TotalComplement [id number]: EGD given h/o aggressive NSAID useFollow up:F/U in 2 frkylqO53.0 Family history of malignant neoplasm of digestive organsNew Medication:Dulcolax 5 mgMoviprep 100 gmComments:Genetic testing for [facility] BvnfkzypnlkF11.0 Hepatomegaly, not elsewhere fgknwutmnwC62.3 Indeterminate colitisComments:Will consider IBD panel after colonoscopy
[2017-11-26 12:47] VITALS: BP 111/74
[2017-11-26] MEDS ORDERED: Ipratropium 0.5MG/2.5ML NEB* 0.5 MG/2.5 ML NEB.SOLN INH ONE (13:12)
[2017-11-26] MEDS ORDERED: predniSONE TAB* 20 MG PO ONE (13:12)
[2017-11-26] MEDS ORDERED: Albuterol 2.5 MG/3 ML NEB.SOL* (0.083%) INH ONE (13:12)
--- NOTE | 2017-11-26 13:18 | UC ---
Respiratory Complaint HPI - HPI Summary HPI Summary: PATIENT HERE COMPLAINING OF 2 DAYS OF WORSENING SHORTNESS OF BREATH, WHEEZE AND COUGH. SHE HAS A HISTORY OF ASTHMA AND HAS BEEN USING HER ALBUTEROL INHALER WITHOUT MUCH RELIEF. SHE HAS BEEN DOING SOME REMODELING IN HER HOUSE AND SHE THINKS THE DUST IS EXACERBATING HER ASTHMA. SHE DENIES FEVER, NASAL CONGESTION , SORE THROAT, EAR PAIN, NAUSEA/VOMITING. - History of Current Complaint Chief Complaint: UCRespiratory Stated Complaint: resp complaint Time Seen by Provider: 11/26/17 12:43 Hx Obtained From: Patient, Family/Pinion Staker - STEPMOM Hx Last Menstrual Period: uterine ablation Onset/Duration: Gradual Onset, Lasting Days, Still Present Timing: Constant Severity Initially: Moderate Severity Currently: Moderate Pain Intensity: 0 Pain Scale Used: 0-10 Numeric Character: Cough: Nonproductive Aggravating Factors: Deep Breaths Alleviating Factors: Nothing Associated Signs And Symptoms: Positive: Dyspnea, Wheezing. Negative: Fever, Chills, Pleuritic Chest Pain, URI, Nasal Congestion - Allergies/Home Medications Allergies/Adverse Reactions: Allergies Allergy/AdvReac Type Severity Reaction Status Date / Time No Known Allergies Allergy Verified 11/26/17 12:36 Home Medications: Home Medications Albuterol HFA INHALER* [Ventolin HFA Inhaler*] 2 puff INH Q4HR PRN 11/26/17 [ History Confirmed 11/26/17] Ascorbic Acid [Vitamin C] 1,000 mg PO DAILY 11/26/17 [History Confirmed 11/26/17 ] Calcium Carbonate [Calcium] 500 mg PO DAILY 11/26/17 [History Confirmed 11/26/17 ] Muscle Relaxer 11/26/17 [History] PMH/Surg Hx/FS Hx/Imm Hx Endocrine History: Hypothyroidism - NO MEDS CURRENTLY Respiratory History: Asthma - Surgical History Surgical History: Yes Surgery Procedure, Year, and Place: Uterine Ablation, 2015, [place]; Right Oopherectomy, 2014, [place]; Cholecystectomy, ~2011, [place]; , 2004, [place] - Family History Known Family History: Positive: Cardiac Disease, Hypertension, Diabetes, Other - cancer - Social History Alcohol Use: Rare Substance Use Type: None Smoking Status (MU): Former Smoker When Did the Patient Quit Smoking/Using Tobacco: "a year ago" 09/21/15 Household Exposure Type: Cigarettes - Immunization History Most Recent Influenza Vaccination: no Review of Systems Constitutional: Negative ENT: Negative Respiratory: Shortness Of Breath, Cough, Other - WHEEZE Cardiovascular: Negative Gastrointestinal: Negative All Other Systems Reviewed And Are Negative: Yes Physical Exam Triage Information Reviewed: Yes Appearance: Well-Appearing, No Pain Distress, Well-Nourished Vital Signs: Initial Vital Signs Temp 99.3 F 11/26/17 12:40 Pulse 80 11/26/17 12:40 Resp 20 11/26/17 12:40 BP 111/74 11/26/17 12:40 Pulse Ox 98 11/26/17 12:40 Vital Signs Reviewed: Yes Eyes: Positive: Conjunctiva Clear ENT: Positive: Hearing grossly normal, Pharynx normal, TMs normal Neck: Positive: Supple, Nontender, No Lymphadenopathy Respiratory: Positive: No respiratory distress, No accessory muscle use, Decreased breath sounds, Wheezing - DIFFUSE Cardiovascular Exam: Normal Abdomen Description: Positive: Soft Musculoskeletal: Positive: No Edema Neurological: Positive: Alert Psychological: Positive: Age Appropriate Behavior Skin: Negative: rashes UC Diagnostic Evaluation - Laboratory O2 Sat by Pulse Oximetry: 98 Re-Evaluation - Re-Evaluation First Eval Re-Evaluation Time: 14:05 - FEELS BETTER AND HAS IMPROVED LUNG EXAM AFTER 60MG PREDNISONE AND DUONEB Change: Improved Respiratory Course/Dx - Differential Dx/Diagnosis Provider Diagnoses: ASTHMA EXACERBATION Discharge - Sign-Out/Discharge Documenting (check all that apply): Discharge/Admit/Transfer - Discharge Plan Condition: Stable Disposition: HOME Prescriptions: predniSONE TAB* [Deltasone TAB*] 50 mg PO DAILY #4 tab Patient Education Materials: Asthma (ED), Wheezing (ED) Referrals: Tania Weiner MD [Primary Care Provider] - If Needed Additional Instructions: YOUR SYMPTOMS ARE CONSISTENT WITH AN ACUTE ASTHMA EXACERBATION. COMPLETE 5 DAYS OF PREDNISONE AND USE YOUR ALBUTEROL AT HOME PRESCRIBED. SEEK FOLLOW- UP IF YOU'RE NOT IMPROVING EXPECTED. GO TO THE ED WITHOUT FAIL IF YOU DEVELOP WORSENING SHORTNESS OF BREATH, CHEST PAIN, FEVER, DIZZINESS OR ANY OTHER CONCERNING SYMPTOMS. - Billing Disposition and Condition Condition: STABLE Disposition: HOME
== END 2017-11-26 14:23 | disposition home or self-care (01) ==
LOC: UCEAST 12:24
DX: J45.909 Unspecified asthma, uncomplicated (principal); E03.9 Hypothyroidism, unspecified; Z87.891 Personal history of nicotine dependence
CPT/HCPCS: 99212; G0463; J7512

== ENCOUNTER 2018-02-11 15:05 | Emergency (ER) | payer OTHER ==
--- OUTSIDE RECORDS SUMMARY | 2018-02-11 15:11 | XMS REPORT ---
:1980 External Reference #:[id number] Author Organization [facility] Address [address] [place] [address] Phone [phone] Care Team Providers Name Role Phone Tania Weiner MD Primary Care Physician Unavailable Payers Type Date Identification Numbers Payment Provider Subscriber Commercial Policy Number: [id number] [place] Claims Dept Munira Alvarez PayID: [id number] [address] [place] [address] Medigap Part B Policy Number: [id number] [facility] Medicaid/Ins Munira Alvarez PayID: [id number] [address] [place] [address] Problems Description No Information Family History Date [...] Form Strength Qnty SIG Indications Ordering Provider Iron (Ferrous 01/20 Active Tablets 256(28Fe) 100ta 1 by mouth D50.9 Tania Gluconate) /2018 mg bs every day Isaias Weiner Ventolin HFA 08/14 Active Aerosol 108(90Bas 1unit 2 puff four J45.30 e) s times a day alirio Weiner/Act as needed M.Chiquita Ketoconazole 07/23 Active Cream 2% 60gm apply twice B37.2 a day to dora Weiner M.D. area of groin Nystatin 07/23 Active Powder 445897Bcl 15gm apple to B37.2 t/GM groin rash Regine, twice a day M.D. as needed Sertraline HCL 06/10 Active Tablets 50mg 90tab 1 by mouth F34.1 s every day Isaias Weiner Ankle 12/27 Active Misc 1unit as directed S93.401A Tania Keane/Delkwesie s Aisha Weiner/Betina/X-La Isaias rge Crutches-Aluminu 12/27 Active Misc 1pair as directed S93.401A Tania Isaias Weiner Vitamin D-3 09/11 Active Capsules 1000Unit 180ca 2 by mouth Tania ps every day Isaias Weiner Vitamin B-12 Active Tablets 500mcg 90tab 1 by mouth Tania Natural /0000 s every day Isaias Weiner Magnesium Active Capsules 500mg Unknown /0000 Cyclobenzaprine 10/21 Hx Tablets 10mg 30tab take 1 M54.2 Tania s tablet by Regine, - mouth three M.D. 01/20 times a day /2017 if needed Azithromycin 08/14 Hx Tablets 250mg 6tabs 2 by mouth J45.30 today, 1 by Regine, - mouth day 2 M.D. 10/21 thru Cheratussin ac 08/14 Hx Solution 100-10mg/ 118ml 5 J45.30 5ML milliliters Regine, - every 6 M.D. 10/21 hours needed cough Ibuprofen 07/23 Hx Tablets 600mg 120ta 1 by mouth M54.5 bs every 6 Dallinuss, - hours as M.D. 01/20 needed Sertraline HCL 05/08 Hx Tablets 25mg 30tab 1 by mouth F34.1 s every day Regine, - M.D. 06/10 Acetaminophen-Co 12/27 Hx Tablets 300-30mg 30tab 1 by mouth S93.401A Tania deine #3 s every 6 Gauss, - hours as M.D. 05/08 needed pain Levothyroxine 09/11 Hx Tablets 50mcg 90tab 1 by mouth s every day Mindi Weiner M.D. 05/08 Elimite 12/06 Hx Cream 5% 60gm as Dir Tania Mindi Weiner M.D. 09/11 Advil 09/17 Hx Tablets 400mg 1 PO prn Tania Mindi Weiner M.D. 09/11 Depo-Provera 09/17 Hx Injection 150mg/ml Tania Mindi Weiner M.D. 09/11 Monistat 7 09/17 Hx Cream 2% 30uni 1 623.8 ts applicatorfu Mindi Weiner pv qd Isaias 09/11 Buspirone 09/17 Hx Tablets 10mg 60tab po bid 300.00 s Mindi Weiner M.D. 09/11 Tamiflu Hx Capsules 75mg 1 by mouth Unknown /0000 twice a day - 08/14 Immunizations CPT Code Status Date Vaccine Lot # [id number] Given 03/22/2003 Tetanus And Diptheria Toxiods 58309 Given 03/22/2003 Influenza Vaccine Vital Signs Date Vital Result Comment 01/20/2018 BP Systolic 124 mmHg BP Diastolic 70 mmHg Heart Rate 69 /min Respiratory Rate 18 /min Height 64 inches 5'4" Weight 231.00 lb BMI (Body Mass Index) 39.6 kg/m2 O2 % BldC Oximetry 96 % 10/21/2017 BP Systolic 130 mmHg BP Diastolic 80 mmHg Heart Rate 84 /min Respiratory Rate 18 /min Height 64 inches 5'4" Weight 237.00 lb BMI (Body Mass Index) 40.7 kg/m2 O2 % BldC Oximetry 96 % 08/14/2017 BP Systolic 118 mmHg BP Diastolic 70 mmHg Body Temperature 97.3 F Height 64 inches 5'4" Weight 240.00 lb BMI (Body Mass Index) 41.2 kg/m2 08/07/2017 BP Systolic 128 mmHg BP Diastolic 78 mmHg Height 64 inches 5'4" Weight 240.00 lb BMI (Body Mass Index) 41.2 kg/m2 07/23/2017 BP Systolic 135 mmHg BP Diastolic [...] Test Date Test Result H/L Range Note Laboratory test finding 12/05/2017 Urine HCG NEGATIVE Negative 1, 2 (Qualitative) CBC W/ Diff & PLT 08/22/2017 White Blood Count 6.2 K/uL 3.1-10.7 3 Red Blood Count 4.71 M/uL 3.90-5.40 3 Hemoglobin 13.6 gm/dL 11.6-15.8 3 Hematocrit 41.3 % 36.0-46.1 3 Mean Cell Volume 87.7 fl 80.9-99.0 3 Mean Corpuscular HGB 28.9 pg 25.9-32.7 3 Mean Corpuscular HGB Conc 32.9 g/dL 30.8-34.3 3 Platelet Count 237 K/uL 155-360 3 Red Cell Distri Width SD 40.2 fl 3-47 3 Red Cell Distri Width %CV 13.0 % 11.7-14.4 3 Mean Platelet Volume 10.5 fL 8.9-12.4 3 Neut% 63.0 % 40.4-72.8 3 Lymph % 27.6 % 20.0-42.0 3 Hudson % 5.7 % 4.3-13.2 3 Eo% 3.2 % 0.0-6.6 3 Bas% 0.5 % 0.0-1.1 3 Neut# 3.89 K/uL 1.8-7.0 3 Lymph # 1.70 K/uL 1.0-4.0 3 Hudson # 0.35 K/uL 0.3-0.9 3 Eos # 0.20 K/uL 0.0-0.5 3 Baso # 0.03 K/uL 0.0-0.1 3 Hepatic Function Panel 08/22/2017 Total Protein 7.4 g/dL 6.4-8.2 3 Albumin 3.7 g/dL 3.4-5.0 3 Globulin 3.7 g/dL 1.9-4.3 3 Alb/Glob 1.0 ratio 3 Bilirubin,Total 0.4 mg/dL 0.2-1.0 3 Bilirubin,Direct < 0.1 mg/dL 0.0-0.2 3 Bilirubin,Indirect 0.3 mg/dL 0.0-0.9 3 Sgot/Ast 24 U/L 15-37 3 SGPT/Alt 35 U/L 12-78 3 Alkaline Phosphatase 59 U/L 45-117 3 Laboratory test finding 08/22/2017 Slide Review . 3, 4 Laboratory test finding 08/06/2017 Rapid Strep Molecular Negative Negative 5 Rapid Influenza A & B 08/06/2017 Influenza A Molecular NEGATIVE Negative 6 Molecular Influenza B Molecular NEGATIVE Negative TSH Reflex FT4 And/Or FT3 05/08/2017 Thyroid [...] add FT3? Y Reflex add FT4? Y CBC 05/08/2017 White Blood Count 5.4 K/uL 3.1-10.7 Red Blood Count 4.52 M/uL 3.90-5.40 Hemoglobin 13.7 gm/dL 11.6-15.8 Hematocrit 41.0 % 36.0-46.1 Mean Cell Volume 90.7 fl 80.9-99.0 Mean Corpuscular HGB 30.3 pg 25.9-32.7 Mean Corpuscular HGB Conc 33.4 g/dL 30.8-34.3 Platelet Count 196 K/uL 150-400 Red Cell Distri Width %CV 12.6 % 11.7-14.4 Mean Platelet Volume 11.3 fL 8.9-12.4 Sodium 05/08/2017 Sodium 141 mmol/L 136-145 Reflex add FT3? Y Reflex add FT4? Y Creatinine 05/08/2017 Creatinine 0.9 mg/dL 0.6-1.3 Reflex add FT3? Y Reflex add FT4? Y BUN 05/08/2017 BUN 9 mg/dL 7-18 Reflex add FT3? Y Reflex add FT4? Y Glucose 05/08/2017 Glucose 80 mg/dL 74-106 Reflex add FT3? Y Reflex add FT4? Y Laboratory test finding 02/05/2017 Thyroid Stim Hormone 2.02 uIU/mL 0.30- 4.20 Free T4 0.90 ng/dL 0.76-1.46 CBS W/Automated Diff 02/05/2017 White Blood Count 5.8 K/uL 3.1-10.7 7 Red Blood Count 4.46 M/uL 3.90-5.40 7 Hemoglobin 13.4 gm/dL 11.6-15.8 7 Hematocrit 40.2 % 36.0-46.1 7 Mean Cell Volume 90.1 fl 80.9-99.0 7 Mean Corpuscular HGB 30.0 pg 25.9-32.7 7 Mean Corpuscular HGB Conc 33.3 g/dL 30.8-34.3 7 Platelet Count 177 K/uL 150-400 7 Red Cell Distri Width SD 40.9 fl 3-47 7 Red Cell Distri Width %CV 12.7 % 11.7-14.4 7 Mean Platelet Volume 11.4 fL 8.9-12.4 7 Neut% 60.7 % 40.4-72.8 7 Lymph % 32.0 % 20.0-42.0 7 Hudson % 5.5 % 4.3-13.2 7 Eo% 1.6 % 0.0-6.6 7 Bas% 0.2 % 0.0-1.1 7 Neut# 3.51 K/uL 1.8-7.0 7 Lymph # 1.85 K/uL 1.0-4.0 7 Hudson # 0.32 K/uL 0.3-0.9 7 Eos # 0.09 K/uL 0.0-0.5 7 Baso # 0.01 K/uL 0.0-0.1 7 Laboratory test finding 02/05/2017 Sedimentation Rate 30 mm/hr High 0-20 7, 8 Basic Metabolic Panel 02/05/2017 Glucose 83 mg/dL 74-106 BUN 9 mg/dL 7-18 Creatinine 0.9 mg/dL 0.6-1.3 Glom Filtration Rate, Estimate >60 mL/min >60 If >60 mL/min >60 9 BUN/Creat 10.0 ratio Sodium 140 mmol/L 136-145 Potassium 3.9 mmol/L 3.5-5.1 Chloride 105 mmol/L 98-107 Carbon Dioxide 27 mmol/L 21-32 Anion Gap 8 mEq/L 8-16 Calcium 9.2 mg/dL 8.5-10.1 Lipid Panel 02/05/2017 Cholesterol 237 mg/dL High <200 10 Triglycerides 264 mg/dL High <150 11 HDL Cholesterol 56 mg/dL >40 12 LDL-Cholesterol 128 mg/dL < 100 13 CBC Auto Diff 09/21/2016 White Blood Count [...] Egfr Non- 74.7 >60 Egfr 96.0 >60 14 CBC W/ Diff & PLT 09/20/2016 WBC 4.9 thous/L 3.8-10.8 15 RBC 4.60 mill/L 3.80-5.10 15 Hemoglobin 13.4 g/dL 11.7-15.5 15 Hematocrit 41.1 % 35.0-45.0 15 MCV 89.4 FL 80.0-100.0 15 MCH 29.1 pg 27.0-33.0 15 MCHC 32.5 g/dL 32.0-36.0 15 RDW 12.9 % 11.0-15.0 15 Platelet Count 166 thous/L 140-400 15 Platelet Sufficiency PENDING 15 MPV 10.0 FL 7.5-12.5 15 Neutrophils,Absolute 2810 cells/L 8553-1346 15 Bands,Absolute PENDING 15 Metamyelocytes,Absolute PENDING 15 Myelocytes,Absolute PENDING 15 Promyelocytes,Absolute PENDING 15 Lymphocytes,Absolute 1690 cells/L 850-3900 15 Monocytes,Absolute 240 cells/L 200-950 15 Eosinophils,Absolute 130 cells/L 15-500 15 Basophils,Absolute 20 cells/L 0-200 15 Blast Cells,Absolute PENDING 15 Nucleated RBC,Absolute PENDING 15 Total Neutrophils,% 57 % 40-75 15 Bands,% PENDING 15 Metamyelocytes,% PENDING 15 Myelocytes,% PENDING 15 Promyelocytes,% PENDING 15 Total Lymphocytes,% 35 % 12-47 15 Monocytes,% 5 % 4-12 15 Eosinophils,% 3 % 0-4 15 Basophils,% 0 % 0-1 15, 16 Blasts,% PENDING 15 Nucleated RBC PENDING 15 RBC Morphology PENDING 15 Anisocytosis PENDING 15 Poikilocytosis PENDING 15 Microcytosis PENDING 15 Macrocytosis PENDING 15 Polychromasia PENDING 15 Hypochromasia PENDING 15 Target Cells PENDING 15 Basophilic Stippling PENDING 15 Comment PENDING 15 TSH & T4,Free 09/20/2016 TSH 4.37 mIU/L 0.40-4.50 15, 17 T4,Free 1.1 ng/dL 0.8-1.8 15 Laboratory test finding 09/20/2016 Esr,Westergren 14 MM/HR 0-20 15 Lipid Panel 09/20/2016 Cholesterol 225 mg/dL High 125-200 15 HDL Cholesterol 44 mg/dL Low > Or=46 15 Cholesterol/HDL Ratio 5.1 High < Or=5.0 15 LDL Chol,Calculated 141 mg/dL High <130 15, 18 Triglycerides 199 mg/dL High <150 15 Non-HDL Cholesterol 180 mg/dL High 15, 19 Basic Metabolic Panel 09/20/2016 Sodium 138 mmol/L 135-146 15 Potassium 4.7 mmol/L 3.5-5.3 15 Chloride 103 mmol/L 98-110 15 Carbon Dioxide 28 mmol/L 20-31 15 Calcium 9.4 mg/dL 8.6-10.2 15 Glucose 86 mg/dL 65-99 15, 20 Urea Nitrogen 10 mg/dL 7-25 15 Creatinine 0.88 mg/dL 0.50-1.10 15 BUN/Creatinine Ratio 11.5 6-22 15 Egfr Non-Afr. [place]er 85 ML/MIN/1.73M2 > Or=60 15 Egfr 98 ML/MIN/1.73M2 > Or=60 15 1 COLONOSCOPY 2 FIRST MORNING SPECIMENS GENERALLY CONTAIN THE HIGHEST CONCENTRATION OF HCG AND ARE RECOMMENDED FOR EARLY DETECTION OF . Method: Quidel QuickVue One-Step Immunoassay 3 R10.11 RUQ PAIN,E66.01 I10 E03.9 R10.11 4 Instrument flagged sample for slide review. Less than 10% Bands seen, no other immature WBC's seen. RBC morphology essentially normal. Platelet estimate=NORMAL 5 Lining Closer: [id number] 6 Lining Closer: [id number] 7 E03.9 N83.201 M62.9 8 Method: Sediplast Modified Westergren 9 Note: Persistent reduction for 3 months or more in an eGFR <60 mL/min/1.73 m2 defines CKD. Patients with eGFR values >/=60 mL/min/1.73 m2 may also have CKD if evidence of persistent proteinuria is present. The original MDRD equation for estimated GFR is not valid for patients less than 18 years of age. Additional information may be found at www.kdoqi.org. 10 Reference Guidelines*: Desirable: ........... < 200 [...] Source: National Cholesterol Education Program (NCEP) 14 Because ethnic data is not always readily [...] 15-29 5 Kidney failure <15 (or dialysis) 15 FASTING 16 Relative blood cell counts (%) should be compared with absolute cell counts (cells/mcL). Relative counts may not be clinically meaningful if the absolute count of one or more cell type is decreased. Reference ranges for relative cell counts derived from: A Manual of Laboratory and Diagnostics Tests, 9th Ed, Srikanth [employer] Wilson, 2015. Pediatric Reference Intervals, 7th Ed, [employer], 2011. 17 REFERENCE RANGES BELOW ARE APPLICABLE TO FEMALES FIRST TRIMESTER - 0.26 - 2.66 mIU/L SECOND TRIMESTER - 0.55 - 2.73 mIU/L THIRD TRIMESTER - 0.43 - 2.91 mIU/L 18 LDL-CHOLESTEROL RISK CATEGORY* GOAL VERY HIGH (E.G. DIABETES + CVD) <70 MG/DL HIGH (DIABETICS; CHD RISK EQUIVALENTS) <100 MG/DL MODERATELY HIGH (MULTIPLE(2+) RISK FACTORS) <130 MG/DL 0 TO 1 RISK FACTORS <160 MG/DL * NCEP REPORT. CIRCULATION 2004; 110: 227-239 19 Target for non-HDL cholesterol is 30 mg/dL higher than LDL cholesterol target. 20 GLUCOSE REFERENCE RANGE BASED ON FASTING SPECIMEN. Procedures Date CPT Code Description Status Comment 09/20/2016 85146 Echocardiography Completed 12/20/2000 Mammogram Completed Encounters Type Date Location Provider CPT E/M Dx Office Visit 01/20/2018 10:15a Main Office Tania Weiner M.D. 15543 K29.00 D50.9 E55.9 Office Visit 10/21/2017 2:15p Main Office Tania Weiner M.D. 37945 M54.2 R10.11 Office Visit 08/14/2017 2:30p Main Office Tania Weiner M.D. 16277 J45.30 J20.9 Office Visit 08/07/2017 3:00p Main Office Tania Weiner M.D. 60806 R10.11 Office Visit 07/23/2017 2:00p Main Office Tania Weiner M.D. 43621 F34.1 E03.9 B37.2 M54.5 Office Visit 06/10/2017 2:45p Main Office Tania Weiner M.D. 46092 F34.1 Office Visit 05/08/2017 3:00p Main Office Tania Weiner M.D. 45012 F34.1 E03.9 Office Visit 12/27/2016 11:45a Main Office Tania Weiner M.D. 88071 S93.401A M84.361D Office Visit 09/25/2016 11:15a Main Office Tania Weiner M.D. 33094 E03.9 E66.09 M54.2 E78.5 F34.1 Office Visit 09/11/2016 10:45a Main Office Tania Weiner M.D. 56014 M25.519 E03.9 N83.201 Office Visit 09/17/2005 3:00p Main Office Tania Weiner M.D. 01865 623.8 300.00 278.00 Office Visit 10/11/2003 11:30a Main Office Tania Weiner M.D. 30297 493.00 723.10 Plan of Care Future Appointment(s):04/21/2018 11:45 am - Tania Weiner M.D. at Main Gqbiof5008/2017 - Tania Weiner M.D.K29.00 Acute gastritis without bleedingComments: followed by supervisor nutritional yeast for this being evaluated for fatty liver, hepatitis studies are ebmwaqF39.9 Iron deficiency anemia, unspecifiedNew Medication:Iron (Ferrous Gluconate) 256(28 Fe) mgNew Labs:CBC W/ Diff & PLTIron & FerritinComments:continue fe supplement and monitor cbc regularlyFollow up:Followup:. (Follow up)E55.9 Vitamin D deficiency, unspecifiedComments:refilled med
--- OUTSIDE RECORDS SUMMARY | 2018-02-11 15:11 | XMS REPORT ---
:1980 External Reference #:[id number] Author Organization [facility] Address [address] [place] [address] Phone [phone] Care Team Providers Name Role Phone Tania Weiner MD Primary Care Physician Unavailable Payers Type Date Identification Numbers Payment Provider Subscriber Commercial Policy Number: [id number] [place] Claims Dept Munira Alvarez PayID: [id number] [address] [place] [address] Medigap Part B Policy Number: [id number] [facility] [place] Munira Alvarez PayID: [id number] [address] [place] [address] Problems Description No Information Family History Date [...] Form Strength Qnty SIG Indications Ordering Provider Cyclobenzaprine 10/21 Active Tablets 10mg 30tab take 1 M54.2 Tania HCL s tablet by Regine, mouth three M.D. times a day if needed Ventolin HFA 08/14 Active Aerosol 108(90Bas 1unit 2 puff four J45.30 e) s times a day Regine mcg/Act as needed M.D. Ketoconazole 07/23 Active Cream 2% 60gm apply twice B37.2 a day to Gauss, affected M.D. area of groin Nystatin 07/23 Active Powder [id number] 15gm apple to B37.2 t/GM groin rash Regine, twice a day M.D. as needed Ibuprofen 07/23 Active Tablets 600mg 120ta 1 by mouth M54.5 bs every 6 Gauss, hours as M.D. needed Sertraline HCL 06/10 Active Tablets 50mg 90tab 1 by mouth F34.1 Tania s every day Isaias Weiner Ankle 12/27 Active Misc 1unit as directed S93.401A Tania Keane/Deluxe s iAsha Weiner/Betina/X-La Isaias rge Crutches-Aluminu 12/27 Active Misc 1pair as directed S93.401A Tania Isaias Weiner Vitamin D-3 09/11 Active Capsules 1000Unit 180ca 2 by mouth ps every day Isaias Weiner Vitamin B-12 Active Tablets 500mcg 1 by mouth Unknown Natural /0000 every day Magnesium Active Capsules 500mg Unknown /0000 Azithromycin 08/14 Hx Tablets 250mg 6tabs 2 by mouth J45.30 today, 1 by Regine, - mouth day 2 M.D. 10/21 thru Cheratussin ac 08/14 Hx Solution 100-10mg/ 118ml 5 J45.30 5ML milliliters Regine, - every 6 M.D. 10/21 hours needed cough Sertraline HCL 05/08 Hx Tablets 25mg 30tab 1 by mouth F34.1 s every day Mindi Weiner M.DArun 06/10 Acetaminophen-Co 12/27 Hx Tablets 300-30mg 30tab 1 by mouth S93.401A Tania deine # s every 6 Gauss, - hours as M.D. 05/08 needed for pain Levothyroxine 09/11 Hx Tablets 50mcg 90tab 1 by mouth Tania s every day Mindi Weiner M.D. 05/08 Elimite 12/06 Hx Cream 5% 60gm as Dir Tania Mindi Weiner M.D. 09/11 Advil 09/17 Hx Tablets 400mg 1 PO prn Tania Mindi Weiner M.D. 09/11 Depo-Provera 09/17 Hx Injection 150mg/ml Mindi Weiner M.D. 09/11 Monistat 7 09/17 Hx Cream 2% 30uni 1 623.8 ts applicatorfu Mindi Weiner l pv qd Aftab.Chiquita 09/11 Buspirone 09/17 Hx Tablets 10mg 60tab po bid 300.00 Mindi Salgado M.D. 09/11 Tamiflu Hx Capsules 75mg 1 by mouth Unknown /0000 twice a day - 08/14 Immunizations CPT Code Status Date Vaccine Lot # [id number] Given 03/22/2003 Tetanus And Diptheria Toxiods 49256 Given 03/22/2003 Influenza Vaccine Vital Signs Date [...] 3 Lymph % 27.6 % 20.0-42.0 3 [place] % 5.7 % 4.3-13.2 3 Eo% 3.2 % 0.0-6.6 3 Bas% 0.5 % 0.0-1.1 3 Neut# 3.89 K/uL 1.8-7.0 3 Lymph # 1.70 K/uL 1.0-4.0 3 [place] # 0.35 K/uL 0.3-0.9 3 Eos # [...] 11.7-14.4 Mean Platelet Volume 11.3 fL 8.9-12.4 Lipid Panel 02/05/2017 Cholesterol 237 mg/dL High <200 7 Triglycerides 264 mg/dL High <150 8 HDL Cholesterol 56 mg/dL >40 9 LDL-Cholesterol 128 mg/dL < 100 10 Basic Metabolic Panel 02/05/2017 Glucose 83 mg/dL 74-106 BUN 9 mg/dL 7-18 Creatinine 0.9 mg/dL 0.6-1.3 Glom Filtration Rate, Estimate >60 mL/min >60 If >60 mL/min >60 11 BUN/Creat 10.0 ratio Sodium 140 mmol/L 136-145 Potassium 3.9 mmol/L 3.5-5.1 Chloride 105 mmol/L 98-107 Carbon Dioxide 27 mmol/L 21-32 Anion Gap 8 mEq/L 8-16 Calcium 9.2 mg/dL 8.5-10.1 Laboratory test finding 02/05/2017 Thyroid Stim Hormone 2.02 uIU/mL 0.30- 4.20 Free T4 0.90 ng/dL 0.76-1.46 CBS W/Automated Diff 02/05/2017 White Blood Count 5.8 K/uL 3.1-10.7 12 Red Blood Count 4.46 M/uL 3.90-5.40 12 Hemoglobin 13.4 gm/dL 11.6-15.8 12 Hematocrit 40.2 % 36.0-46.1 12 Mean Cell Volume 90.1 fl 80.9-99.0 12 Mean Corpuscular HGB 30.0 pg 25.9-32.7 12 Mean Corpuscular HGB Conc 33.3 g/dL 30.8-34.3 12 Platelet Count 177 K/uL 150-400 12 Red Cell Distri Width SD 40.9 fl 3-47 12 Red Cell Distri Width %CV 12.7 % 11.7-14.4 12 Mean Platelet Volume 11.4 fL 8.9-12.4 12 Neut% 60.7 % 40.4-72.8 12 Lymph % 32.0 % 20.0-42.0 12 [place] % 5.5 % 4.3-13.2 12 Eo% 1.6 % 0.0-6.6 12 Bas% 0.2 % 0.0-1.1 12 Neut# 3.51 K/uL 1.8-7.0 12 Lymph # 1.85 K/uL 1.0-4.0 12 [place] # 0.32 K/uL 0.3-0.9 12 Eos # 0.09 K/uL 0.0-0.5 12 Baso # 0.01 K/uL 0.0-0.1 12 Laboratory test 02/05/2017 Sedimentation Rate 30 mm/hr High 0-20 12, 13 finding CBC Auto Diff 09/21/2016 White Blood Count [...] 10.0 FL 7.5-12.5 15 Neutrophils,Absolute 2810 cells/L 2346-3619 15 Bands,Absolute PENDING 15 Metamyelocytes,Absolute PENDING 15 [...] BUN/Creatinine Ratio 11.5 6-22 15 Egfr Non-Afr. [place] 85 ML/MIN/1.73M2 > Or=60 15 Egfr 98 ML/MIN/1.73M2 > Or=60 15 1 COLONOSCOPY 2 FIRST MORNING SPECIMENS GENERALLY CONTAIN THE HIGHEST CONCENTRATION OF HCG AND ARE RECOMMENDED FOR EARLY DETECTION OF . Method: castaclipidel QuickVue One-Step Immunoassay 3 R10.11 RUQ PAIN,E66.01 I10 E03.9 R10.11 4 Instrument flagged sample for slide review. Less than 10% Bands seen, no other immature WBC's seen. RBC morphology essentially normal. Platelet estimate=NORMAL 5 Transport Engineer: [id number] Transport Engineer: [id number] 7 Reference Guidelines*: Desirable: ........... < 200 mg/dL Borderline High: ..... 200-239 mg/dL High: ................ >=240 mg/dL * The National Cholesterol Education Program (NCEP) 8 Reference Guidelines*: Normal: ............. < 150 mg/dL Borderline High: .... 150-199 mg/dL High: ............... 200-499 mg/dL Very High: .......... > 500 mg/dL * Source: National Cholesterol Education Program (NCEP) 9 Reference Guidelines*: Low HDL: ..... < 40 mg/dL Normal: ..... 40-60 mg/dL Desirable: ... > 60 mg/dL *The National Cholesterol Education Program(NCEP) 10 Reference Guidelines*: Optimal:........... <100 mg/dL Near Optimal....... 100-129 mg/dL Borderline High.... 130-159 mg/dL High............... 160-189 mg/dL Very High.......... >=190 mg/dL * Source: National Cholesterol Education Program (NCEP) 11 Note: Persistent reduction for 3 months or more in an eGFR <60 mL/min/1.73 m2 defines CKD. Patients with eGFR values >/=60 mL/min/1.73 m2 may also have CKD if evidence of persistent proteinuria is present. The original MDRD equation for estimated GFR is not valid for patients less than 18 years of age. Additional information may be found at www.kdoqi.org. 12 E03.9 N83.201 M62.9 13 Method: Sediplast Modified Westergren 14 Because ethnic data is not always [...] Date CPT Code Description Status Comment 09/20/2016 53898 Echocardiography Completed 12/20/2000 Mammogram Completed Encounters Type Date Location Provider CPT E/M Dx Office Visit 10/21/2017 2:15p Main Office Tania Weiner M.D. 38940 M54.2 R10.11 Office Visit 08/14/2017 2:30p Main Office Tania Weiner M.D. 37356 J45.30 J20.9 Office Visit 08/07/2017 3:00p Main Office Tania Weiner M.D. 92401 R10.11 Office Visit 07/23/2017 2:00p Main Office Tania Weiner M.D. 19764 F34.1 E03.9 B37.2 M54.5 Office Visit 06/10/2017 2:45p Main Office Tania Weiner M.D. 01361 F34.1 Office Visit 05/08/2017 3:00p Main Office Tania Weiner M.D. 08225 F34.1 E03.9 Office Visit 12/27/2016 11:45a Main Office Tania Weiner M.D. 43017 S93.401A M84.361D Office Visit 09/25/2016 11:15a Main Office Tania Weiner M.D. 24357 E03.9 E66.09 M54.2 E78.5 F34.1 Office Visit 09/11/2016 10:45a Main Office Tania Weiner M.D. 74652 M25.519 E03.9 N83.201 Office Visit 09/17/2005 3:00p Main Office Tania Weiner M.D. 94563 623.8 300.00 278.00 Office Visit 10/11/2003 11:30a Main Office Tania Weiner M.D. 59831 493.00 723.10 Plan of Care 10/21/2017 - Tania Weiner M.D.M54.2 CervicalgiaNew Medication:Cyclobenzaprine HCL 10 mgComments:heat, muscle rubs, may benefit from PT short course of cyclobenzaprine, explained that opioids are not indicated for this condtionFollow up:Followup:. (Follow up)R10.11 Right upper quadrant painComments :lft's are normal, will refer to gi suspect NASHReferral:Jorge Winn, Gastroenterology
[2018-02-11 15:34] VITALS: BP 107/73
--- NOTE | 2018-02-11 16:17 | ED ---
Abdominal Pain/Female - HPI Summary HPI Summary: This is babar Johnson documenting for attending Harvey Min MD. This patient is a 37 year old F presenting to [facility] accompanied by a woman with a chief complaint of abd pain since this morning. Pt has had this pain before but usually it goes away with some Tylenol and Motrin. Pt reports that her pain goes up to 8/10 during spikes but is currently at 5/10. Symptoms not alleviated by lying down, sitting, or taking a bath. Patient reports nausea and difficulty eating normally. Patient denies rash, heartburn, dysuria, hematuria, abnormal vaginal discharge, or difficulty passing stool. PMHX Cholecystectomy (4 years ago), right ovary removal b/c of uterine ablasion, and hepatomegaly. No PMHx kidney stones. SHX occasional EtOH use. FHX Uterine cancer. RX heartburn pills. - History of Current Complaint Chief Complaint: UCAbdominalPain Stated Complaint: ABD PAIN Time Seen by Provider: 02/11/18 15:55 Hx Obtained From: Patient Hx Last Menstrual Period: no periods Onset/Duration: Sudden Onset Timing: Intermittent Episode Lasting - a few days Severity Initially: Moderate Severity Currently: Moderate Pain Intensity: 5 Pain Scale Used: 0-10 Numeric Location: Discrete At: RUQ Associated Signs and Symptoms: Positive: Decreased Appetite, Nausea. Negative: Diaphoresis, Fever, Cough, Blood in Stool, Urinary Symptoms, Vaginal Bleeding, Vaginal Discharge, Vomiting Allergies/Adverse Reactions: Allergies Allergy/AdvReac Type Severity Reaction Status Date / Time No Known Allergies Allergy Verified 02/11/18 15:34 Home Medications: Home Medications Iron 02/11/18 [History] PMH/Surg Hx/FS Hx/Imm Hx Endocrine/Hematology History: Reports: Hx Thyroid Disease - Hypothyroidism Denies: Hx Diabetes Cardiovascular History: Denies: Hx Hypertension Respiratory History: Denies: Hx Asthma, Hx Chronic Obstructive Pulmonary Disease (COPD) GI History: Denies: Hx Ulcer History: Reports: Other Problems/Disorders - lft and right ovarian cyst - Surgical History Surgery Procedure, Year, and Place: Uterine Ablation, 2015, ; Right Oopherectomy, 2014, ; Cholecystectomy, ~2011, [place]; , 2004, - Immunization History Date of Influenza Vaccine: none Infectious Disease History: No Infectious Disease History: Denies: Hx Clostridium Difficile, Hx Hepatitis, Hx Human Immunodeficiency Virus (HIV), Hx of Known/Suspected MRSA, Hx Shingles, Hx Tuberculosis, Hx Known/ Suspected VRE, Hx Known/Suspected VRSA, History Other Infectious Disease, Traveled Outside the [place] in Last 30 Days - Family History Known Family History: Positive: Cardiac Disease, Hypertension, Diabetes, Other - cancer - Social History Alcohol Use: Occasionally Substance Use Type: Reports: None Hx Tobacco Use: Yes Smoking Status (MU): Former Smoker Review of Systems Negative: Fever Negative: Blurred Vision Positive: Abdominal Pain, Nausea. Negative: Vomiting Negative: dysuria, discharge, hematuria Negative: Rash All Other Systems Reviewed And Are Negative: Yes Physical Exam - Summary Physical Exam Summary: General: well-appearing, no pain distress Skin: warm, color reflects adequate perfusion, dry Head: normal Eyes: EOMI, [place]ED[place] ENT: normal Neck: supple, nontender Respiratory: CTA, breath sounds present Cardiovascular: RRR Abdomen: soft. Tender in the RUQ. Bowel: present Musculoskeletal: normal, strength/ROM intact Neurological: sensory/motor intact, A&O x3 Psychological: affect/mood appropriate Triage Information Reviewed: Yes Vital Signs On Initial Exam: Initial Vitals Temp Pulse Resp BP Pulse Ox 98 F 75 18 107/73 100 02/11/18 15:28 02/11/18 15:28 02/11/18 15:28 02/11/18 15:28 02/11/18 15:28 Vital Signs Reviewed: Yes Diagnostics - Vital Signs Vital Signs Temp Pulse Resp BP Pulse Ox 02/11/18 15:28 98 F 75 18 107/73 100 - Laboratory Lab Results: Lab Results 02/11/18 Range/Units 15:44 POC Urine Color Light yellow POC Urine Clarity Clear POC Urine pH 5.5 (5-9) POC Ur Specif [place] <= 1.005 L (1.010-1.030) POC Urine Protein Negative (Negative) POC Ur Glucose (UA) Negative (Negative) POC Urine Ketones Negative (Negative) POC Urine Blood Negative (Negative) POC Urine Nitrite Negative (Negative) POC Urine Bilirubin Negative (Negative) POC Urine Urobilinogen 0.2 (Negative) POC U Leukocyte Esteras Negative (Negative) Lab Statement: Any lab studies that have been ordered have been reviewed, and results considered in the medical decision making process. Abdominal Pain Fem Course/Dx - Course Course Of Treatment: RECOMMENDED FURTHER EVALUATION IN ED WHERE LABS AND IMAGING ARE AVAILABLE TODAY. - Diagnoses Provider Diagnoses: Right upper quadrant pain Discharge - Sign-Out/Discharge Documenting (check all that apply): Patient Departure - Discharge Plan Condition: Stable Disposition: HOME Patient Education Materials: Acute Abdominal Pain (ED) Referrals: Tania Weiner MD [Primary Care Provider] - Additional Instructions: GO DIRECTLY TO THE EMERGENCY DEPARTMENT FOR FURTHER EVALUATION OF YOUR ABDOMINAL PAIN. - Billing Disposition and Condition Condition: STABLE Disposition: Home
== END 2018-02-11 16:15 | disposition home or self-care (01) ==
LOC: UCEAST 15:05
DX: R10.11 Right upper quadrant pain (principal); Z87.891 Personal history of nicotine dependence; R11.0 Nausea; Z90.49 Acquired absence of other specified parts of digestive tract
CPT/HCPCS: 81003; 99212; G0463

== ENCOUNTER 2018-02-11 17:30 | Emergency (ER) | payer OTHER ==
[2018-02-11 18:09] LABS: ABS Basophils 0.1 10^3/ul (0-0.2); ABS Eosinophils 0.2 10^3/ul (0-0.6); ABS Lymphocytes 1.7 10^3/ul (1.0-4.8); ABS Monocytes 0.3 10^3/ul (0-0.8); ABS Neutrophils 3.1 10^3/ul (1.5-7.7); ABS Nucleated RBC 0 10^3/ul; Eosinophil % 3.1 % (0-6); Hematocrit 40 % (35-47); Hemoglobin 13.4 g/dl (12.0-16.0); Mean Corpuscular HGB Conc 34 g/dl (31-36); Mean Corpuscular Hemoglobin 29 pg (27-31); Mean Corpuscular Volume 86 fL (80-97); Mean Platelet Volume 8.9 um3 (7.4-10.4); Nucleated Red Blood Cells % 0.2; Platelet Count 194 10^3/ul (150-450); Red Blood Count 4.61 10^6/ul (4.00-5.40); Red Cell Distribution Width 14 % (10.5-15); White Blood Count 5.3 10^3/ul (3.5-10.8)
[2018-02-11 18:27] LABS: EGFR Non-African American 75.3 (>60)
--- NOTE | 2018-02-11 18:46 | ED ---
Abdominal Pain/Female - HPI Summary HPI Summary: 37 y/o female presents to the ED c/o constant ABD pain starting 08:00 this morning. Pain located mostly in the RUQ. Associated sx: nausea. Pain at a 5 earlier at a 7 now, described as a sharp pain that radiates to the groin intermittently. Sx gallbladder removal. This is scribe Ed Sima documenting for attending Donald Francis MD - History of Current Complaint Chief Complaint: EDAbdPain Stated Complaint: ABD PAIN Time Seen by Provider: 02/11/18 18:45 Hx Obtained From: Patient Hx Last Menstrual Period: no periods Onset/Duration: Lasting Hours Timing: Constant Severity Initially: Moderate Severity Currently: Moderate Pain Intensity: 7 Pain Scale Used: 0-10 Numeric Location: Discrete At: RUQ Radiates: Yes Radiates to: RLQ Character: Sharp Aggravating Factor(s): Nothing Alleviating Factor(s): Nothing Associated Signs and Symptoms: Positive: Nausea Allergies/Adverse Reactions: Allergies Allergy/AdvReac Type Severity Reaction Status Date / Time No Known Allergies Allergy Verified 02/11/18 15:34 Home Medications: Home Medications Albuterol HFA INHALER* [Ventolin HFA Inhaler*] 2 puff INH Q4H PRN 02/11/18 [ History Confirmed 02/11/18] Cholecalciferol (Vitamin D3) [Vitamin D3] 2,000 unit PO DAILY 02/11/18 [History Confirmed 02/11/18] Cyanocobalamin TAB* [Vitamin B12 TAB*] 500 mcg PO DAILY 02/11/18 [History Confirmed 02/11/18] Ferrous Gluconate [Iron] 236 mg PO DAILY 02/11/18 [History Confirmed 02/11/18] Sertraline* [Zoloft*] 50 mg PO DAILY 02/11/18 [History Confirmed 02/11/18] PMH/Surg Hx/FS Hx/Imm Hx Previously Healthy: No Endocrine/Hematology History: Reports: Hx Thyroid Disease - Hypothyroidism Denies: Hx Diabetes Cardiovascular History: Denies: Hx Hypertension Respiratory History: Denies: Hx Asthma, Hx Chronic Obstructive Pulmonary Disease (COPD) GI History: Denies: Hx Ulcer History: Reports: Other Problems/Disorders - lft and right ovarian cyst - Surgical History Surgery Procedure, Year, and Place: Uterine Ablation, 2015, [place]; Right Oopherectomy, 2014, [place]; Cholecystectomy, ~2011, [place]; , 2004, [place] - Immunization History Date of Influenza Vaccine: none Infectious Disease History: No Infectious Disease History: Denies: Hx Clostridium Difficile, Hx Hepatitis, Hx Human Immunodeficiency Virus (HIV), Hx of Known/Suspected MRSA, Hx Shingles, Hx Tuberculosis, Hx Known/ Suspected VRE, Hx Known/Suspected VRSA, History Other Infectious Disease, Traveled Outside the [place] in Last 30 Days - Family History Known Family History: Positive: Cardiac Disease, Hypertension, Diabetes, Other - cancer - Social History Alcohol Use: Occasionally Substance Use Type: Reports: None Hx Tobacco Use: Yes Smoking Status (MU): Former Smoker Review of Systems Constitutional: Negative Eyes: Negative ENT: Negative Cardiovascular: Negative Respiratory: Negative Positive: Abdominal Pain, Nausea Genitourinary: Negative Musculoskeletal: Negative Skin: Negative Neurological: Negative Psychological: Normal All Other Systems Reviewed And Are Negative: Yes Physical Exam - Summary Physical Exam Summary: VITAL SIGNS: Reviewed. GENERAL: Patient is a well-developed and nourished female who is lying comfortable in the stretcher. Patient is not in any acute respiratory distress. HEAD AND FACE: No signs of trauma. No ecchymosis, hematomas or skull depressions. No sinus tenderness. EYES: PERRLA, EOMI x 2, No injected conjunctiva, no nystagmus. EARS: Hearing grossly intact. Ear canals and tympanic membranes are within normal limits. MOUTH: Oropharynx within normal limits. NECK: Supple, trachea is midline, no adenopathy, no JVD, no carotid bruit, no c- spine tenderness, neck with full ROM. CHEST: Symmetric, no tenderness at palpation LUNGS: Clear to auscultation bilaterally. No wheezing or crackles. CVS: Regular rate and rhythm, S1 and S2 present, no murmurs or gallops appreciated. ABDOMEN: Soft, RUQ tenderness. No signs of distention. No rebound no guarding, and no masses palpated. Bowel sounds are normal. EXTREMITIES: FROM in all major joints, no edema, no cyanosis or clubbing. NEURO: Alert and oriented x 3. No acute neurological deficits. Speech is normal and follows commands. SKIN: Dry and warm Triage Information Reviewed: Yes Vital Signs On Initial Exam: Initial Vitals Temp Pulse Resp BP Pulse Ox 97.9 F 65 18 121/82 100 02/11/18 17:31 02/11/18 17:31 02/11/18 17:31 02/11/18 17:31 02/11/18 17:31 Vital Signs Reviewed: Yes Diagnostics - Vital Signs Vital Signs Temp Pulse Resp BP Pulse Ox 02/11/18 17:31 97.9 F 65 18 121/82 100 - Laboratory Lab Results: Lab Results 02/11/18 02/11/18 02/11/18 Range/Units 17:58 17:58 17:59 WBC 5.3 (3.5-10.8) 10^3/ul RBC 4.61 (4.00-5.40) 10^6/ul Hgb 13.4 (12.0-16.0) g/dl Hct 40 (35-47) % MCV 86 (80-97) fL MCH 29 (27-31) pg MCHC 34 (31-36) g/dl RDW 14 (10.5-15) % Plt Count 194 (150-450) 10^3/ul MPV 8.9 (7.4-10.4) um3 Neut % (Auto) 58.1 (38-83) % Lymph % (Auto) 31.0 (25-47) % Gage % (Auto) 6.5 (0-7) % Eos % (Auto) 3.1 (0-6) % Baso % (Auto) 1.3 (0-2) % Absolute Neuts (auto) 3.1 (1.5-7.7) 10^3/ul Absolute Lymphs (auto) 1.7 (1.0-4.8) 10^3/ul Absolute Monos (auto) 0.3 (0-0.8) 10^3/ul Absolute Eos (auto) 0.2 (0-0.6) 10^3/ul Absolute Basos (auto) 0.1 (0-0.2) 10^3/ul Absolute Nucleated RBC 0 10^3/ul Nucleated RBC % 0.2 Sodium 138 (135-145) mmol/L Potassium 4.4 (3.5-5.0) mmol/L Chloride 104 (101-111) mmol/L Carbon Dioxide 28 (22-32) mmol/L Anion Gap 6 (2-11) mmol/L BUN 10 (6-24) mg/dL Creatinine 0.85 (0.51-0.95) mg/dL Est GFR ( Amer) 91.1 (>60) Est GFR (Non-Af Amer) 75.3 (>60) BUN/Creatinine Ratio 11.8 (8-20) Glucose 91 (70-100) mg/dL Lactic Acid 1.0 (0.5-2.0) mmol/L Calcium 9.4 (8.6-10.3) mg/dL Total Bilirubin 0.30 (0.2-1.0) mg/dL AST 18 (13-39) U/L ALT 16 (7-52) U/L Alkaline Phosphatase 49 (34-104) U/L C-Reactive Protein 9.30 H (<8.01) mg/L Total Protein 6.8 (6.4-8.9) g/dL Albumin 3.9 (3.2-5.2) g/dL Globulin 2.9 (2-4) g/dL Albumin/Globulin Ratio 1.3 (1-3) Lipase 20 (11.0-82.0) U/L Result Diagrams: 02/11/18 17:58 02/11/18 17:58 Lab Statement: Any lab studies that have been ordered have been reviewed, and results considered in the medical decision making process. - CT ABD/PEL CT CT Interpretation Completed By: Radiologist - 1. STATUS POST CHOLECYSTECTOMY. 2. SMALL TO MODERATE SIZE HIATAL HERNIA. 3. FINDINGS SUGGESTIVE OF PANNICULITIS , AGE INDETERMINATE. 4. MALROTATION OF THE RIGHT KIDNEY. Re-Evaluation - Re-Evaluation 1 Re-Evaluation Time: 20:11 Comment: discuss test results and findings, plan of care Abdominal Pain Fem Course/Dx - Course Course Of Treatment: Patient is a 37-year-old female who presents to the emergency department with a chief complaint of having right upper quadrant pain. Patient reports that she had a cholecystectomy however the pain is in the right upper quadrant. The pain is nonradiating. Denies any fever or chills and she has some nausea without any vomiting. Blood test results without any significant abnormality. Abdominopelvic CT impression: Status post cholecystectomy. A small to moderate size hiatal hernia. Findings suggestive of panniculitis. Malrotation of the right kidney. In the ED course the patient was given Toradol for the pain. An examination and denies any rash, denies see any vesicles therefore I do not believe that the patient has shingles. At this point I discussed all the findings and test results with the patient and the need to follow up with primary care physician. Patient is hemodynamically stable alert and oriented 3. All questions were answered and no further concerns. Patient was instructed to return to the emergency room if she develops any more pain, nausea vomiting, diarrhea or constipation. She understands and agrees. - Diagnoses Provider Diagnoses: Right sided abdominal pain Discharge - Sign-Out/Discharge Documenting (check all that apply): Patient Departure - Discharge Plan Condition: Stable Disposition: HOME Prescriptions: Naproxen [Naproxen 500 mg tab] 500 mg PO BID #30 tablet Patient Education Materials: Abdominal Pain (ED) Referrals: Tania Weiner MD [Primary Care Provider] - 4 Days (PLEASE F/U IN 3-5 DAYS) Additional Instructions: RETURN TO THE ED FOR CHANGING/WORSENING SYMPTOMS
[2018-02-11] MEDS ORDERED: Iohexol 300* (CONTRAST) 10 ML SDV IV ONE (18:57)
--- NOTE | 2018-02-11 19:43 | RAD ---
INDICATION: Right-sided abdominal pain. COMPARISON: There are no prior studies available for comparison. TECHNIQUE: A CT scan of the abdomen and pelvis was performed with intravenous and without oral contrast following intravenous injection of 139 ml of Omnipaque 300 nonionic contrast. Contiguous axial sections were obtained from the lung bases through the symphysis pubis. Images were reconstructed in the coronal and sagittal planes. FINDINGS: The lung bases are clear. No pleural effusion is present. The liver and spleen are normal in size without significant focal abnormality. The patient is status post cholecystectomy. The pancreas appears to be within normal limits. The adrenal glands and kidneys are normal in size. There is a malrotation of the right kidney with renal pelvis located more lateral than normal. The kidney is also slightly ptotic in location. No hydronephrosis is seen. No focal renal abnormality is noted. The aorta is normal in caliber and demonstrates homogeneous contrast opacification. No significant enlarged retroperitoneal lymph nodes are seen. There is a small to moderate size hiatal hernia. The stomach, small and large bowel appear nondistended. There appears to be an appendicolith present. The remaining appendix appears not well-defined although there is no evidence for inflammatory change. There are few scattered diverticuli. There is no evidence for diverticulitis. There is mild interstitial stranding in the small bowel mesentery with several mildly prominent lymph nodes suggestive of panniculitis, age indeterminate. The uterus is anteverted and normal in size. No free intraperitoneal air or fluid is seen. No significant focal osseous abnormality is seen. IMPRESSION: 1. STATUS POST CHOLECYSTECTOMY. 2. SMALL TO MODERATE SIZE HIATAL HERNIA. 3. FINDINGS SUGGESTIVE OF PANNICULITIS, AGE INDETERMINATE. 4. MALROTATION OF THE RIGHT KIDNEY.
[2018-02-11] MEDS ORDERED: Ketorolac INJ* 30 MG/ML 1 ML VIAL IV PUSH ONE (20:07)
[2018-02-11 21:02] VITALS: BP 118/69
== END 2018-02-11 21:01 | disposition home or self-care (01) ==
LOC: ED 17:30
DX: R10.11 Right upper quadrant pain (principal); K44.9 Diaphragmatic hernia without obstruction or gangrene; Q63.2 Ectopic kidney; Z90.49 Acquired absence of other specified parts of digestive tract; Z87.891 Personal history of nicotine dependence
CPT/HCPCS: 36415; 74177; 80053; 83605; 83690; 85025; 86140; 96374; 99283; J1885; Q9967